=== PATIENT | male | born 1955 | race Caucasian/White ===

== ENCOUNTER → 2017-03-11 13:50 | Outpatient (CLI) | payer MEDICARE, BC ==
[2015-12-21 10:54] VITALS: BMI 28.3
[~2017-03-11 13:50] MED LIST: AMBIEN10 MG PO; ASPIRIN 81 MG E81 MG PO; CYMBALTA60 MG PO; DEXILANT60 MG PO; ELOCON45 GM TOPICAL; FISH OIL 1,2001 CA1 PO; GEODON20 MG PO; KLONOPIN1 MG PO; MULTIPLE VITAMI1 TA1 PO; NEURONTIN600 MG PO; NITROSTAT0.4 MG SL; PLAVIX75 MG PO; PRAVACHOL40 MG PO; SYSTANE NIGHTT3.5 GM EACH EYE; TRICOR145 MG PO; TRIDERM90 GM TP; TRIGLIDE160 MG PO; ULTRAM50 MG PO; VIBRAMYCIN 100100 MG PO; VITAMIN D2000 UNIT PO; VITAMIN D50000 UNIT PO; ZOVIRAX800 MG PO; [UNRECOGNIZED DRUG - OTHER] TP
== END | disposition home or self-care (01) ==
LOC: D.MRI 13:50
DX: M13.861 Other specified arthritis, right knee (principal); M13.862 Other specified arthritis, left knee

== ENCOUNTER → 2017-03-24 13:12 | Outpatient (CLI) | payer MEDICARE, BC ==
[2015-12-21 10:54] VITALS: BMI 28.3
== END | disposition home or self-care (01) ==
LOC: D.LABREF 13:12
DX: M17.12 Unilateral primary osteoarthritis, left knee (principal); Z11.8 Encounter for screening for other infectious and parasitic diseases

== ENCOUNTER 2017-04-08 10:00 | Inpatient (IN) | payer MEDICARE, BC ==
[~2017-04-08] VITALS: Ht 188 cm; Wt 99.5 kg
[2017-04-08] MEDS ORDERED: LIPITOR40 MG PO (10:58)
[2017-04-08 11:23] LABS: BASOPHILS 0.3 % (0-2); EOSINOPHILS 2.8 % (0-7); HEMATOCRIT 47.2 % (42.0-54.0); HEMOGLOBIN 15.7 g/dL (13.5-17.5); IMMATURE GRANULOCYTES 0.5 % (0-5); LYMPHOCYTES 32.7 % (15-50); MCH 31.3 pg (26.0-34.0); MCHC 33.3 g/dL (31.0-37.0); MCV 94.2 fL (80.0-100.0); MEAN PLATELET VOLUME 8.5 fL (7.4-10.4); MONOCYTES 11.3 % (2-11); NEUTROPHILS 52.4 % (40-80); PLATELET COUNT 305 10x3/uL (130-400); RBC 5.01 10x6/uL (4.20-6.10); RDW 12.5 % (11.5-14.5); WBC 6.5 10x3/uL (4.8-10.8)
[2017-04-08 11:33] LABS: APTT 28.5 SECONDS (22.8-39.4); INR 0.98 (0.85-1.17); PROTIME 12.8 SECONDS (11.6-15.0)
[2017-04-08 11:34] LABS: ANION GAP 13.4 mmol/L (8-16); CALCIUM 9.3 mg/dL (8.5-10.1); CARBON DIOXIDE 26.9 mmol/L (21.0-32.0); CREATININE - SERUM 1.2 mg/dL (0.6-1.3); POTASSIUM - SERUM 4.3 mmol/L (3.5-5.1)
[2017-04-08 11:41] LABS: COLOR DK YELLOW (YELLOW)
[2017-04-08 11:42] LABS: APPEARANCE CLEAR (CLEAR); BILIRUBIN NEGATIVE (NEGATIVE); GLUCOSE NEGATIVE (NEGATIVE); KETONE SMALL mg/dL (NEGATIVE); LEUKOCYTE ESTERASE NEGATIVE (NEGATIVE); NITRITE NEGATIVE (NEGATIVE); PROTEIN NEGATIVE (NEGATIVE); SPECIFIC GRAVITY 1.025 (1.005-1.020); UROBILINOGEN NORMAL (NORMAL)
[2017-04-14] VITALS (8 sets, daily range): BP systolic 106–136; BP diastolic 71–85; Ht 188 cm; Wt 99.5 kg
--- NOTE | 2017-04-14 10:50 | NUR ---
PT RECIEVED FROM RECOVERY AT THIS TIME, POST OP VITALS INITIATED. ASSESSMENT DONE PER FLOWSHEET. BED IN LOW POSITION AND CALL LIGHT WITHIN REACH. WILL CONTINUE TO MONTIOR.
--- NOTE | 2017-04-14 19:28 | NUR ---
PT LYING IN BED EYES DIRECTED AT TELEVISION, CHEERFUL DEMEANOR WHEN I WALKED IN, PT NEEDED ASSISTANCE WITH FINDING READING GLASSES, PT'S GLASSES WERE UNDER GOWN NEAR CPM MACHINE. BED IS IN LOW POSITION, CALL LIGHT IN REACH
--- NOTE | 2017-04-14 23:50 | NUR ---
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 BED IS IN LOW POSITION, CALL LIGHT IN REACH
[2017-04-15] VITALS: BP 108/74
--- NOTE | 2017-04-15 00:58 | NUR ---
PT BACK ON LIGHT, TOLD RN MARITO KNEE IS STILL BURNING, PT HAS PERCOCET ON OCT WELL, ADMIN PERCOCET AND ADVISED PT IF THAT DOESNT WORK WILL HAVE TO CALL DR MCKEON, WILL CONTINUE TO MONITOR PT STATUS
--- NOTE | 2017-04-15 02:00 | NUR ---
PATIENT RESTING IN BED WITH EYES CLOSED AND NO VISIBLE SIGNS OF DISTRESS. BED IN LOWEST POSITION AND CALL LIGHT WITHIN REACH.
[2017-04-15 04:00] VITALS: BP 93/58
[2017-04-15 05:59] LABS: HEMOGLOBIN 11.6 g/dL (13.5-17.5); MCH 30.9 pg (26.0-34.0); MCHC 33.1 g/dL (31.0-37.0); MCV 93.3 fL (80.0-100.0); MEAN PLATELET VOLUME 8.5 fL (7.4-10.4); RBC 3.75 10x6/uL (4.20-6.10); RDW 12.4 % (11.5-14.5)
--- NOTE | 2017-04-15 07:50 | NUR ---
ASSESSMENT COMPLETE. IV TO R WRIST PATENT. 1/2 NS INFUSING AT 100 CC/HR VIA PUMP. TEDS/SCD IN USE TO R LEG. DENIES ANY NEEDS AT PRESENT.
[2017-04-15 08:36] VITALS: BP 143/91
--- NOTE | 2017-04-15 12:00 | NUR ---
NO CHANGES NOTED AT PRESENT. VISITING WITH FRIEND.
[2017-04-15 12:15] VITALS: BP 116/73
[2017-04-15 15:57] VITALS: BP 126/77
--- NOTE | 2017-04-15 16:00 | NUR ---
RESTING QUIETLY IN BED. NO CHANGES NOTED AT PRESENT.
--- NOTE | 2017-04-15 18:01 | NUR ---
CPM APPLIED TO L KNEE. DENIES ANY NEEDS AT THIS TIME.
--- NOTE | 2017-04-15 18:30 | OP ---
PATIENT NAME: BETZAIDA TRAN MEDICAL RECORD: [id number] :55 LOCATION:[id number] ADMISSION DATE:04/14/17 SURGEON: SHAUN COTTO DO DATE OF OPERATION: 04/14/2017 PROCEDURE PERFORMED: Left total knee arthroplasty. PREOPERATIVE DIAGNOSIS: Left knee osteoarthritis. POSTOPERATIVE DIAGNOSIS: Left knee osteoarthritis. INDICATIONS: Mr. Tran is a 61-year-old male who was dealt with left knee pain for quite some time. He has had several knee arthroscopies. He was seen in the office, had tried injections, which have not worked and he came to the point where he was ready for something permanent to help with his pain as it had been affecting his activities of daily living. He was informed of the risks and benefits of a total knee arthroplasty and consented to the procedure and to be undergone today. DESCRIPTION OF PROCEDURE: Mr. Tran was given adductor canal block in the preoperative area by anesthesia and taken to the operative suite, placed in supine position, given general anesthetic and the left leg was prepped and draped in a sterile fashion. A timeout was performed and all parties were in agreement with the correct side, site and surgery as well as the patient and the patient was given 2 grams of Ancef. The incision site was then marked out and then an Ioban was placed over the left knee. The left leg was then exsanguinated with the Esmarch and the tourniquet was inflated to 350 mmHg for a total time during the surgery of 83 minutes. At that time, the incision was made down to the capsule. The knife was then changed and a fresh blade was used to make a capsulotomy. A medial parapatellar incision was made and the patella was everted and the fat pad was taken out as well as the anterior horn of the medial meniscus. A medial release was done at that time. Once the patella was milled down, it was determined to be a size 40. Osteophytes were taken off the patella as well and the knee was then brought into flexion. Intramedullary guide was inserted after the canal was opened using a reamer and Asepto manager games was used to irrigate the canal. Intramedullary fermin was then placed and the guide was placed on and the distal femur cut was made then attention was then drawn to the tibia. The tibia cut was made at 4 mm and then determined that 2 more millimeters was needed to be take off. This was done and a medial release was performed on the knee including the deep and superficial MCL. Osteophytes were removed off the tibia and the extension block was placed and the knee was balanced. The knee was then brought into flexion and the femur was measured to be a 70. The cutting block was placed and the cuts were made, first the anterior cortex and the chamfer cuts in the anterior surface. The posterior cut was then made and the posterior chamfer cut was made. The 70 trial was then placed on the femur and a 10 poly was put on the tibia with some difficulty. Osteophytes were encountered in the posterior tibia and removed and the tibial tray was inserted easily. The patella was then everted and a 40 patella was drilled, 3 pegs. Once that was done, the knee was balanced. The femoral trial was removed as well as the tibial trial and the tibia was measured and seen to be an 83, placed in slight external rotation and the tibial tray was punched at that time and then extra holes were made in the tibia with a tool to assist with cement and interdigitation. The tibia was then cleaned very well and the 83 tibia cruciate fin with cement was placed onto the tibia. Excess cement was removed and then the impactor was used twice to ensure the tibial tray was down OPERATIVE REPORT [id number] BETZAIDA TRAN the tibia. Excess cement was removed. The femur was then placed and the poly on the patella was placed as well, cemented. The femur was press fitted. A sized 40 was used on the patella. Once the cement dried, the tourniquet was let down and any bleeders were coagulated at that time with the plasma knife. Once the cement was dried, the 10 poly was trialed and seemed to be the best fit and then the knee was irrigated once again. Excess synovium was removed and the 10 E poly was placed and the tibial tray was secured with the locking device. Once this was done, the knee was brought through range of motion and seen to be in good position and had plenty of range of motion without any problems. Patella was also seen to be gliding easily on the femoral prosthesis and the capsule was closed with #1 pops in a maevtw-zu-qendw suture fashion. Once this was done, the knee was ranged again and seemed to range very well and was very well balanced. The skin was then closed after being irrigated on top of the capsule with 2-0 Vicryl in an inverted interrupted fashion and a ZipLine was used over the incision. Adaptic, 4 x 4, ABD, Webril and Aayush wrap were then placed over the knee and CRISTI hose was placed into the knee and the patient was awakened and taken to recovery in stable condition. Total tourniquet time was 83 minutes. Estimated blood loss was 150 mL. TRANSINT:[id number] Voice Confirmation ID: [id number] DOCUMENT ID: [id number] SHAUN COTTO DO at 1830 CC: [id number] DICTATION DATE: 04/14/17 1015 ORE BRIDGE OPERATOR: 04/14/17 1151 ADM IN [facility] [address] [place] [address]
--- NOTE | 2017-04-15 19:20 | NUR ---
PT IS LYING IN BED WITH LEFT LEG IN CPM MACHINE. VISITING WITH AND DAUGHTER. STATED LEG HAS BEEN HURTING ALL DAY AND NEEDED A NEW GAMEPLAN FOR MEDICATION AND PAIN MANAGEMENT. PT MEDS DUE AT 2100 ADVISED WILL WAIT UNTIL THEM BEFORE ADMIN OF MEDS AND THEN WILL REEVAL PAIN LEVEL. BED IN LOW POSITION, CALL LIGHT IN REACH
[2017-04-15 20:00] VITALS: BP 122/62
[2017-04-16] VITALS: BP 130/71
[2017-04-16 04:00] VITALS: BP 104/57
--- NOTE | 2017-04-16 04:00 | NUR ---
PATIENT IS AWAKE, ALERT AND ORIENTED X'S 4. RESPIRATIONS ARE EVEN AND UNLABORED. PATIENT DENIES NEEDS AT THIS TIME. BED IN LOWEST POSITION, CALL LIGHT IN REACH. BED RIALS UP X'S 3.
[2017-04-16 05:37] LABS: HEMATOCRIT 31.1 % (42.0-54.0); HEMOGLOBIN 10.3 g/dL (13.5-17.5); MCH 30.9 pg (26.0-34.0); MCHC 33.1 g/dL (31.0-37.0); MCV 93.4 fL (80.0-100.0); MEAN PLATELET VOLUME 8.4 fL (7.4-10.4); RBC 3.33 10x6/uL (4.20-6.10); RDW 12.4 % (11.5-14.5)
--- NOTE | 2017-04-16 07:40 | NUR ---
ASSESSMENT COMPLETE. IV TO R WRIST PATENT. DRESSING C/D/I TO L KNEE. CRISTI/SCD IN USE TO L LEG. BED ALARM IN USE. DENIES ANY NEEDS AT PRESENT.
[2017-04-16 07:59] VITALS: BP 116/72
--- NOTE | 2017-04-16 11:00 | NUR ---
Patient Name: BETZAIDA MCCRACKEN Admission Status: Elective Accout number: [id number] Admission Date: 04-14-2017 : 1955 Admission Diagnosis: Attending: SHAUN COTTO Current LOS: 2 Anticipated DC Date: Planned Disposition: Primary Insurance: MEDICARE A & B Discharge Planning Comments: CM met with patient to assess discharge planning needs. Patient lives independently with his (Jemal) who will be the one to drive him home at the time of discharge. He has 5 steps to enter in his home. He has a cane and a walker at home and stated that a cpm machine and ice machine was delivered to his house. Patient would like to use [facility] when he goes home and CM will set it up prior to discharge. CM will continue to follow and assist. PCP: SHOAIB DARNELL IN [facility] JEMAL ()[phone] President And Ceo: Concetta Villatoro * Is the patient Alert and Oriented? Yes 0 * How many steps to enter\exit or inside your home? 5 0 * PCP SHOAIB 0 * Pharmacy [facility] 0 * Preadmission Environment Home with Family 0 * ADLs Independent 0 * Equipment Cane Rolling Walker 0 * List name and contact numbers for known caregivers / representatives who currently or will assist patient after discharge: JEMAL() [phone] * Community resources currently utilized None 0 * Additional services required to return to the preadmission environment? Yes 0 * Can the patient safely return to the preadmission environment? Yes 0 * Has this patient been hospitalized within the prior 30 days at any hospital? Yes 0 Grand Total: 0
--- NOTE | 2017-04-16 11:27 | NUR ---
PERCOCET GIVEN FOR COMPLAINT OF INCISIONAL KNEE PAIN.
[2017-04-16 11:46] VITALS: BP 150/81
--- NOTE | 2017-04-16 14:54 | NUR ---
COMPLAINING OF KNEE PAIN. ATARAX GIVEN. INFORMED THAT PERCOCET COULD BE TAKEN AGAIN AT 1730. FAMILY AT BEDSIDE.
--- NOTE | 2017-04-16 17:39 | NUR ---
COMPLAINING OF PAIN. STATES THAT HE HASN'T BEEN HURTING LIKE THIS TODAY. LAST PERCOCET WAS GIVEN AT 1705. NOTIFIED DR COTTO. STATES HE WILL ENTER ORDERS.
--- NOTE | 2017-04-16 18:00 | NUR ---
TORADOL GIVEN SLOW IVP FOR COMPLAINT OF KNEE PAIN. CPM APPLIED.
[2017-04-16 20:00] VITALS: BP 130/72
--- NOTE | 2017-04-16 22:30 | NUR ---
PATIENT'S BED ALARM GOING OFF. HE STATED "I GOT UP AND WENT TO THE BATHROOM." TALKED TO PATIENT ABOUT HIS RISK FOR FALL. HE STATED " I WILL NOT GET UP BY MYSELF. I AM SO SORRY. I WILL PUSH MY CALL LIGHT AND WAIT NEXT TIME." BED ALARM ON. CALL LIGHT IN REACH. BED RAILS UP X'S 2.
[2017-04-17] VITALS: BP 138/80
[2017-04-17 03:43] VITALS: BP 136/73
--- NOTE | 2017-04-17 04:40 | NUR ---
PATIENT AMBULATED TO THE BATHROOM USING WALKER, STAYED WITH PATIENT. HE VOIDED THEN AMBULATED BACK TO BED. GAIT STEADY USING WALKER. APPLIED CPM TO LEFT LEG. OFFERED PATIENT AN ICE PACK FOR HIS KNEE. HE REFUSED.
[2017-04-17] MEDS ORDERED: ELIQUIS2.5 MG PO (07:25)
[2017-04-17] MEDS ORDERED: PERCOCET 5-3251 TAB PO (07:26)
[2017-04-17] MEDS ORDERED: OXYCONTIN10 MG PO (07:26)
[2017-04-17] MEDS ORDERED: ATARAX 25 MG TA25 MG PO (07:26)
[2017-04-17] MEDS ORDERED: KEFLEX500 MG PO (07:27)
--- NOTE | 2017-04-17 07:45 | NUR ---
ASSESSMENT COMPLETE. SL TO R WRIST. TEDS/SCDS IN USE TO BILAT LEGS.BED ALARM IN USE. DENIES ANY NEEDS AT PRESENT.
[2017-04-17 08:18] VITALS: BP 142/88
--- NOTE | 2017-04-17 09:33 | NUR ---
PATIENT BEING DISCHARGED TODAY WITH TO DRIVE HOME. PATIENT PICKED [facility] AND HIS FIRST APPOINTMENT IS SCHEDULED FOE 04/21/17 FOR 3:30PM. PT RECOMMENDED THAT THE PATIENT GET A 2 WHEEL ROLLING WALKER. CM SPOKE WITH SHAUN BROCK WITH [employer] AND HE STATED THAT HE WOULD DELIVER ONE TO THE PATIENTS HOUSE. CM WILL CONTINUE TO FOLLOW AND ASSIST NEEDED.
[2017-04-17 09:47] LABS: BASOPHILS 0.2 % (0-2); EOSINOPHILS 2.8 % (0-7); HEMOGLOBIN 10.6 g/dL (13.5-17.5); IMMATURE GRANULOCYTES 0.1 % (0-5); LYMPHOCYTES 17.7 % (15-50); MCH 30.7 pg (26.0-34.0); MCHC 33.1 g/dL (31.0-37.0); MCV 92.8 fL (80.0-100.0); MEAN PLATELET VOLUME 8.2 fL (7.4-10.4); NEUTROPHILS 69.2 % (40-80); PLATELET COUNT 234 10x3/uL (130-400); RBC 3.45 10x6/uL (4.20-6.10); RDW 12.2 % (11.5-14.5); WBC 9.1 10x3/uL (4.8-10.8)
[2017-04-17 10:00] LABS: ALBUMIN 2.7 g/dL (3.4-5.0); ANION GAP 9.9 mmol/L (8-16); BILIRUBIN - TOTAL 0.95 mg/dL (0.2-1.3); CALCIUM 8.6 mg/dL (8.5-10.1); CARBON DIOXIDE 29.8 mmol/L (21.0-32.0); CREATININE - SERUM 1.2 mg/dL (0.6-1.3); POTASSIUM - SERUM 3.7 mmol/L (3.5-5.1); PROTEIN - SERUM 6.3 g/dL (6.4-8.2)
--- NOTE | 2017-04-17 11:00 | NUR ---
DRESSING TO L KNEE CHANGED. ZIPLINE INTACT TO L KNEE INCISION. OPSITE CLEAR DRESSING APPLIED TO L KNEE APPLIED. DISCHARGE TEACHING GIVEN TO PATIENT AND . MULTIPLE SCRIPTS GIVEN TO PATIENT. OPSITE DRESSINGS X 2 GIVEN TO PATIENT.
--- NOTE | 2017-04-17 11:25 | NUR ---
DC'D HOME WITH . ESCORTED TO VEHICLE BY VOLUNTEER VIA WC WITH BELONGINGS.
--- NOTE | 2017-04-19 11:31 | NUR ---
CALL REC'D FROM LEATHA MCCRACKEN, PATIENTS . SHE STATES THAT MR MCCRACKEN HAS NOT BEEN ABLE TO GET RELIEF FROM THE PAIN POST DISCHARGE. SHE STATED THAT HE HAS ADJUSTED THE DEGREE OF FLEXION ON THE CPM A COUPLE OF TIMES AND DECREASED TIME SPENT ON THE CPM. MRS MCCRACKEN HAS BEEN GIVING THE ATARAX, PERCOCET AND OXYCONTIN ON A "SCHEDULED" BASIS DUE TO LACK OF PAIN CONTROL. SHE ALSO REPORTED THAT MR MCCRACKEN GOT UP IN THE MIDDLE OF THE NIGHT AND ATTEMPTED TO GO TO THE BATHROOM WITHOUT HIS WALKER. MR MCCRACKEN FELL HITTING THE TUB/SHOWER AND PULLING THE SHOWER DOROTHY AND CURTAIN DOWN ON HIM. I INSTRUCTED MRS MCCRACKEN TO CALL DR COTTO TO INFORM HIM OF THE ISSUES AND GET FURTHER INSTRUCTION FROM DR COTTO.
== END 2017-04-17 11:25 | disposition home or self-care (01) | DRG 470 ==
LOC: D.SDCHOLD 10:00 → D.MS 04-14 05:32 → D.SDCHOLD 04-14 07:30 → D.MS 04-14 10:39
PROVIDERS: Family Medicine; ADMIT Orthopaedic Surgery
PROC: 0SRD0J9 Replacement of Left Knee Joint with Synthetic Substitute, Cemented, Open Approach (ICD-10-PCS; principal; 2017-04-14 07:30)
DX: M17.12 Unilateral primary osteoarthritis, left knee (principal); M79.7 Fibromyalgia; K21.9 Gastro-esophageal reflux disease without esophagitis; I25.10 Atherosclerotic heart disease of native coronary artery without angina pectoris; F32.9 Major depressive disorder, single episode, unspecified; M25.762 Osteophyte, left knee

== ENCOUNTER 2017-06-23 05:22 | Inpatient (IN) | payer MEDICARE, BC ==
[2017-06-18 10:00] LABS: BASOPHILS 0.3 % (0-2); EOSINOPHILS 3.5 % (0-7); HEMOGLOBIN 13.8 g/dL (13.5-17.5); IMMATURE GRANULOCYTES 0.3 % (0-5); LYMPHOCYTES 26.1 % (15-50); MCH 29.7 pg (26.0-34.0); MCHC 32.1 g/dL (31.0-37.0); MCV 92.5 fL (80.0-100.0); MEAN PLATELET VOLUME 8.6 fL (7.4-10.4); MONOCYTES 13.4 % (2-11); NEUTROPHILS 56.4 % (40-80); RBC 4.65 10x6/uL (4.20-6.10); RDW 12.8 % (11.5-14.5); WBC 7.2 10x3/uL (4.8-10.8)
[2017-06-18 10:09] LABS: PLATELET COUNT 332 10x3/uL (130-400)
[2017-06-18 10:11] LABS: ANION GAP 10.5 mmol/L (8-16); CALCIUM 9.7 mg/dL (8.5-10.1); CARBON DIOXIDE 28.3 mmol/L (21.0-32.0); CREATININE - SERUM 1.2 mg/dL (0.6-1.3); POTASSIUM - SERUM 3.8 mmol/L (3.5-5.1)
[2017-06-18 10:14] LABS: APTT 26.4 SECONDS (22.8-39.4); INR 0.96 (0.85-1.17); PROTIME 12.6 SECONDS (11.6-15.0)
[2017-06-18 10:20] LABS: APPEARANCE CLEAR (CLEAR); COLOR DK YELLOW (YELLOW); SPECIFIC GRAVITY 1.015 (1.005-1.020)
[2017-06-18 10:21] LABS: BACTERIA FEW /hpf (NONE SEEN); BILIRUBIN NEGATIVE (NEGATIVE); CALCIUM OXALATE CRYSTALS 0-5 /hpf (NONE SEEN); EPITHELIAL CELLS RARE /hpf (0-5); GLUCOSE NEGATIVE (NEGATIVE); KETONE NEGATIVE (NEGATIVE); MUCUS <1+ /lpf (NONE SEEN); NITRITE NEGATIVE (NEGATIVE); PROTEIN NEGATIVE (NEGATIVE); UROBILINOGEN NORMAL (NORMAL); WHITE CELLS - URINE RARE /hpf (0-5)
[~2017-06-23] VITALS: Ht 188 cm; Wt 100.0 kg
[~2017-06-23 05:22] MED LIST changes: +ASPIRIN EC81 M1 PO; +ATARAX 25 MG TA25 MG PO; +ELIQUIS2.5 MG PO; +KEFLEX500 MG PO; +LIPITOR40 MG PO; +OXYCONTIN10 MG PO; +PERCOCET 5-3251 TAB PO
[2017-06-23 06:01] VITALS: BP 131/79; BMI 28.3
--- NOTE | 2017-06-23 08:05 | NUR ---
PT LEG WASHED WITH HIBICLENS AND ALCOHOL PRIOR TO CHLORPREP PER DN
--- NOTE | 2017-06-23 10:46 | NUR ---
TO ROOM 2511 FROM RR TO Wait ON BED ON MED/SURG, AWAKE AND ALERT X 3 FAMILY
--- NOTE | 2017-06-23 13:17 | NUR ---
REPORT CALLED TO [facility] MED-SURG, PATIENT TRANSFERRED TO ROOM 2212 BY STRETCHER, PATIENT WITHOUT COMPLAINTS
--- NOTE | 2017-06-23 15:38 | OP ---
PATIENT NAME: BETZAIDA TRAN MEDICAL RECORD: [id number] :55 LOCATION:[facility] ADMISSION DATE:06/23/17 SURGEON: ELIAN COTTO DO DATE OF OPERATION: 06/23/2017 PROCEDURE PERFORMED: Right total knee arthroplasty. PREOPERATIVE DIAGNOSIS: Right knee osteoarthritis. POSTOPERATIVE DIAGNOSIS: Right knee osteoarthritis. INDICATIONS: Mr. Tran is a 61-year-old male who has had right knee pain for quite some time. He has tried injections and physical therapy. He had his left knee done about 2 months ago, did well with that and decided to have the right knee done. He was consented in the office verbally for the procedure. Once this was done, the patient showed up this morning at the hospital and description of procedure is as follows. SURGEON: Elian Cotto DO COMPLICATIONS: None. ESTIMATED BLOOD LOSS: 100 mL. TOURNIQUET TIME TOTAL: Approximately 62 minutes. DESCRIPTION OF PROCEDURE: The patient was taken to the operative suite after receiving a block by anesthesia in the preoperative area, laid in supine position, given general anesthetic and intubated. Once this was done, 2 grams Ancef were given to the patient. A timeout was performed and everyone was in agreement that the right side is the correct side, correct patient, and correct procedure. The right leg was then prepped and draped in sterile fashion. The knee was flexed and the incision was marked out and Ioban was placed over the anterior knee and circumferentially around the knee. Once this was done, the leg was elevated and then an Esmarch used to exsanguinate the leg and then the tourniquet was inflated to 350 mmHg. The knee was then flexed approximately 90 degrees. An incision was made midline. Skin flaps were made medially and laterally enough to make the capsulotomy. This was done with a fresh 10 blade. The capsulotomy was made in medial parapatellar and then the knee was brought into extension. The fat pad was removed. A medial release was done and then the patella was everted and milled down sized to be 40. Extra osteophytes were then taken off at that time of the patella and the distal femur at the cartilage medially. Once this was done, the knee was brought into flexion again and a drill was used to enter the intramedullary canal for the guide. The guide was placed into the knee and 11 mm was resected off the distal femur. Attention was then drawn to the tibia and initially 4 mm of tibia were taken. The lamina elevator constructor hydraulic was used to open up the knee medial and laterally and the menisci were taken out as well as any other bone fragments that were in the knee. Then, the extension block was placed in the knee and seemed to be in good position. The knee was then flexed and the femur was sized to be 70. The 4-in-1 cutting block was then placed on the knee and the anterior chamfer, posterior cut, and posterior chamfer cut were cut at that time. The 70 trial was then placed on the knee. We had difficulty somewhat getting the tibial tray and an additional 2 mm were taken off the tibia. Once this was done, the knee was ranged and the rotation was marked on the knee. Then, the holes were drilled for the femur OPERATIVE REPORT [id number] BETZAIDA TRAN through the trial and then poly and tibial tray were removed. It was then sized to be an 83. Once this was done, the tibia was punched and drilled and irrigated thoroughly. The patella was also sized at 40 and drill holes were made from the patella. Once the tibia was cleaned and the cement was mixed, some cement was put into the tibia as well as on the prosthesis. The tibial tray at [address] Excess cement was removed from around it, and then used the secondary impactor and impacted twice, and then excess cement was removed. Femur was then placed on the femur and the 10 poly was placed on the tibial tray. It was placed in extension and the excess cement was removed and the patella was placed, and the squeezer was placed on the patella. Once the cement had hardened, the patellar squeezer was removed and the 10 was trialed and range of motion seemed to be very stable. So, we decided to use the 10. The tourniquet was let down at that time of 62 minutes. All bleeding was coagulated. At that time, the patient was also given another gram of TXA and had been given a gram earlier prior to the surgery. Once this was done, the poly was placed. The poly bar to secure the poly into place was put in and seen to be very stable. The knee was then irrigated thoroughly. Mami was placed and the capsule was closed using #1 pop-offs in a jmpivw-nj-ogcci fashion and then the skin was closed with a 2-0 Vicryl in inverted interrupted fashion and a ZipLine was placed over the skin incision. The patient was awakened and taken to recovery after Adaptic, 4 x 4s, ABD, Webril, and Aayush wrap were placed over the knee and a CRISTI hose was placed up to the knee. He was taken to recovery in stable condition. Blood loss approximately 100 mL. TRANSINT:[id number] Voice Confirmation ID: [id number] DOCUMENT ID: [id number] ELIAN COTTO DO at 1538 CC: [id number] DICTATION DATE: 06/23/17 0956 [employer]: 06/23/17 1109 ADM IN [place] [id number] [place] [address]
[2017-06-23 17:46] VITALS: BP 101/58
[2017-06-23 19:07] VITALS: Ht 188 cm; Wt 100.0 kg
[2017-06-23 20:00] VITALS: BP 101/48
[2017-06-24 04:00] VITALS: BP 105/73
[2017-06-24 06:17] LABS: BASOPHILS 0.2 % (0-2); HEMATOCRIT 36.1 % (42.0-54.0); HEMOGLOBIN 11.7 g/dL (13.5-17.5); IMMATURE GRANULOCYTES 0.2 % (0-5); LYMPHOCYTES 18.4 % (15-50); MCH 29.8 pg (26.0-34.0); MCHC 32.4 g/dL (31.0-37.0); MCV 92.1 fL (80.0-100.0); MEAN PLATELET VOLUME 8.9 fL (7.4-10.4); MONOCYTES 14.7 % (2-11); NEUTROPHILS 65.5 % (40-80); PLATELET COUNT 302 10x3/uL (130-400); RBC 3.92 10x6/uL (4.20-6.10); RDW 13.1 % (11.5-14.5); WBC 9.9 10x3/uL (4.8-10.8)
[2017-06-24 06:43] LABS: ALBUMIN 2.8 g/dL (3.4-5.0); ANION GAP 12.3 mmol/L (8-16); BILIRUBIN - TOTAL 0.4 mg/dL (0.2-1.3); CALCIUM 8.5 mg/dL (8.5-10.1); CARBON DIOXIDE 25.2 mmol/L (21.0-32.0); CREATININE - SERUM 1.2 mg/dL (0.6-1.3); POTASSIUM - SERUM 3.5 mmol/L (3.5-5.1)
--- NOTE | 2017-06-24 07:55 | NUR ---
ASSESSMENT COMPLETE. SL TO L FA. CRISTI HOSE IN USE TO BILAT LEGS. DENIES ANY COMPLAINT OF PAIN AT THIS TIME.DRESSING TO L KNEE C/D/I.
[2017-06-24 08:49] VITALS: BP 122/78
--- NOTE | 2017-06-24 09:05 | NUR ---
COMPLAINIG OF PAIN TO R KNEE. OXYCODONE IR 5 MG GIVEN.
--- NOTE | 2017-06-24 09:30 | NUR ---
BLOODY DRAINAGE NOTED BEHIND RIGHT KNEE AFTER AMBULATING WITH PT. DRESSING CHANGED USING ADAPTIC,4X4'S, ABD PAIN AND TEE WRAP. SITTING UP IN CHAIR.
--- NOTE | 2017-06-24 13:00 | NUR ---
SITTING UP IN CHAIR. VISITING WITH . DENIES ANY NEEDS AT THIS TIME.
[2017-06-24 13:46] VITALS: BP 124/78
[2017-06-24 15:50] VITALS: BP 135/60
--- NOTE | 2017-06-24 18:10 | NUR ---
CPM APPLIED. AT BEDSIDE.
--- NOTE | 2017-06-24 18:20 | NUR ---
NO CHANGES NOTED AT PRESENT.
--- NOTE | 2017-06-24 19:46 | NUR ---
REC'D. IN CPM. LEONOR. WELL. TEE WRAP DRSG.DRY AND INTACT.WITH CRISTI CAMACHO ON.NEUROVASCULAR STATUS WNL.DENIES CALF PAIN OR TENDERNESS ON DORSIFLEXION PEDAL PULSE PRESENT.WILL CONTINUE TO MONITOR FOR ANY CHGES. AND FOLLOW CURRENT PLAN OF CARE.
[2017-06-24 20:00] VITALS: BP 130/69
--- NOTE | 2017-06-24 21:54 | NUR ---
PATIENT REQUEST TO WAIT AND TAKE PM MEDS. BETWEEN 2230 AND 2300
--- NOTE | 2017-06-25 02:00 | NUR ---
PT IN BED WITH NO DISTRESS. RESPIRATIONS EVEN AND UNLABORED. SIDE RAILS X 2. BED LOW. CALL LIGHT IN REACH.
[2017-06-25 04:00] VITALS: BP 121/75
[2017-06-25 06:17] LABS: BASOPHILS 0.2 % (0-2); EOSINOPHILS 4.3 % (0-7); HEMATOCRIT 34.5 % (42.0-54.0); HEMOGLOBIN 11.2 g/dL (13.5-17.5); IMMATURE GRANULOCYTES 0.3 % (0-5); LYMPHOCYTES 17.9 % (15-50); MCH 29.6 pg (26.0-34.0); MCHC 32.5 g/dL (31.0-37.0); MEAN PLATELET VOLUME 9.2 fL (7.4-10.4); MONOCYTES 14.5 % (2-11); NEUTROPHILS 62.8 % (40-80); PLATELET COUNT 287 10x3/uL (130-400); RBC 3.79 10x6/uL (4.20-6.10); RDW 13.1 % (11.5-14.5); WBC 9.6 10x3/uL (4.8-10.8)
[2017-06-25 06:40] LABS: ALBUMIN 2.7 g/dL (3.4-5.0); ANION GAP 13.3 mmol/L (8-16); BILIRUBIN - TOTAL 0.6 mg/dL (0.2-1.3); CALCIUM 8.6 mg/dL (8.5-10.1); CARBON DIOXIDE 24.4 mmol/L (21.0-32.0); CREATININE - SERUM 1.1 mg/dL (0.6-1.3); POTASSIUM - SERUM 3.7 mmol/L (3.5-5.1); PROTEIN - SERUM 5.9 g/dL (6.4-8.2)
--- NOTE | 2017-06-25 07:30 | NUR ---
ASSESSMENT COMPLETE. SL TO L FA PATENT. DRESSING TO R KNEE C/D/I. CRISTI HOSE IN USE TO BILAT LEGS. DENIES ANY NEEDS AT THIS TIME.
[2017-06-25 09:03] VITALS: BP 140/84
--- NOTE | 2017-06-25 10:00 | NUR ---
OXY IR GIVEN FOR COMPLAINT OF INCISIONAL PAIN.
--- NOTE | 2017-06-25 10:14 | NUR ---
Patient Name: BETZAIDA MCCRACKEN Admission Status: Elective Accout number: [id number] Admission Date: 06-23-2017 : 1955 Admission Diagnosis:UNILATERAL PRIMARY OSTEOARTHRITIS, RIGHT KNEE Attending: SHAUN COTTO Current LOS: 2 Anticipated DC Date: 06-25-2017 Planned Disposition: Home Primary Insurance: MEDICARE A & B Discharge Planning Comments: CM MET WITH PATIENT TO ASSESS DISCHARGE PLANNING NEEDS. PATIENT HAS HAD A RECENT KNEE REPLACEMENT AND HAS A WALKER, CPM, ICE MACHINE AT HOME. HE PLANS TO RETURN TO [facility] PT FOR HIS OUT PATIENT THEARPY. PATIENT STATED THAT HIS WILL BE THE ONE TO DRIVE HIM HOME AT DISCHARGE. CM WILL CONTINUE TO FOLLOW AND ASSIST WITH DISCHARGE PLANNING NEEDS NEEDED. PCP: SHOAIB DARNELL IN [facility] () [phone] Editor [employer] Journal: Concetta Villatoro
--- NOTE | 2017-06-25 11:20 | NUR ---
OP PT SET UP WITH [facility] PATIENT'S APPOINTMENT IS SET FOR ThursdayJun AT 8:00 AM.
[2017-06-25] MEDS ORDERED: ELIQUIS2.5 MG PO (13:24)
[2017-06-25] MEDS ORDERED: OXYCODONE HCL5 MG PO (13:24)
[2017-06-25] MEDS ORDERED: ATARAX 25 MG TA25 MG PO (13:24)
[2017-06-25] MEDS ORDERED: KEFLEX500 MG PO (13:24)
--- NOTE | 2017-06-25 14:00 | NUR ---
DRESSING TO R KNEE CHANGED. ZIPLINE INTACT TO R KNEE INCISION. HONEYCOMB DRESSING APPLIED. DISCHARGE TEACHING GIVEN TO PATTIENT AND . VOICED UNDERSTANDING. SCRIPTS GIVEN TO PATIENT. EXTRA DRESSING SUPPLIES SENT [facility] PATIENT.
--- NOTE | 2017-06-25 14:35 | NUR ---
DC'D HOME WITH . ESCORTED TO VEHICLE BY VOLUNTEER VIA WC WITH BELONGINGS.
== END 2017-06-25 14:45 | disposition home or self-care (01) | DRG 470 ==
LOC: D.SDCHOLD 05:22 → D.MS 05:22 → D.SDCHOLD 07:30 → D.MS 13:21 → D.SDCHOLD 06-25 13:46 → D.MS 06-25 13:49
PROVIDERS: Emergency Medicine; ADMIT Orthopaedic Surgery
PROC: 0SRC0J9 Replacement of Right Knee Joint with Synthetic Substitute, Cemented, Open Approach (ICD-10-PCS; principal; 2017-06-23 07:30)
DX: M17.11 Unilateral primary osteoarthritis, right knee (principal); K21.9 Gastro-esophageal reflux disease without esophagitis; I25.10 Atherosclerotic heart disease of native coronary artery without angina pectoris; F32.9 Major depressive disorder, single episode, unspecified

== ENCOUNTER → 2017-08-12 09:11 | Outpatient (CLI) | payer MEDICARE, BC ==
[2017-06-23 19:07] VITALS: BMI 28.3
[~2017-08-12 09:11] MED LIST changes: +OXYCODONE HCL5 MG PO
== END | disposition home or self-care (01) ==
LOC: D.MRI 09:00
DX: M54.16 Radiculopathy, lumbar region (principal)

== ENCOUNTER → 2018-03-05 13:28 | Outpatient (CLI) | payer MEDICARE, BC ==
[2017-06-23 19:07] VITALS: BMI 28.3
== END | disposition home or self-care (01) ==
LOC: D.MRI 13:28
DX: M54.16 Radiculopathy, lumbar region (principal)

== ENCOUNTER → 2020-01-11 08:30 | Outpatient (CLI) | payer MEDICARE, BC ==
[2017-06-23 19:07] VITALS: BMI 28.3
== END | disposition home or self-care (01) ==
LOC: D.NM 08:30
PROVIDERS: ATTEND Orthopaedic Surgery
DX: M17.11 Unilateral primary osteoarthritis, right knee (principal); M17.12 Unilateral primary osteoarthritis, left knee

== ENCOUNTER 2020-01-13 15:50 | Inpatient (IN) | payer MEDICARE, BC ==
[~2020-01-13] VITALS: Ht 188 cm; Wt 99.1 kg
[2020-01-24] MEDS ORDERED: BAYER CHEWABLE81 MG PO (14:06)
[2020-01-24] MEDS ORDERED: PLAVIX75 MG PO (14:07)
[2020-01-24] MEDS ORDERED: ULTRAM50 MG PO (14:13)
[2020-01-24] MEDS ORDERED: OMEPRAZOLE20 M1 PO (14:14)
[2020-01-24] MEDS ORDERED: OMEPRAZOLE40 MG PO (14:14)
[2020-01-24] MEDS ORDERED: FLUTICASONE PRO16 GM NASAL ×2 (14:17)
[2020-01-25 12:24] LABS: BASOPHILS 0.3 % (0-2); EOSINOPHILS 3.6 % (0-7); HEMATOCRIT 45.1 % (42.0-54.0); HEMOGLOBIN 14.7 g/dL (13.5-17.5); IMMATURE GRANULOCYTES 0.2 % (0-5); LYMPHOCYTES 30.4 % (15-50); MCH 29.6 pg (26.0-34.0); MCHC 32.6 g/dL (31.0-37.0); MCV 90.7 fL (80.0-100.0); MEAN PLATELET VOLUME 8.3 fL (7.4-10.4); MONOCYTES 10.9 % (2-11); NEUTROPHILS 54.6 % (40-80); PLATELET COUNT 341 10x3/uL (130-400); RBC 4.97 10x6/uL (4.20-6.10); RDW 12.3 % (11.5-14.5); WBC 5.9 10x3/uL (4.8-10.8)
[2020-01-25 12:36] LABS: APTT 26.2 SECONDS (22.8-39.4); INR 1.03 (0.85-1.17); PROTIME 13.4 SECONDS (11.6-15.0)
[2020-01-25 12:40] LABS: ANION GAP 8.8 mmol/L (8-16); CALCIUM 9.2 mg/dL (8.5-10.1); CARBON DIOXIDE 29.4 mmol/L (21.0-32.0); CREATININE - SERUM 1.3 mg/dL (0.6-1.3); POTASSIUM - SERUM 4.2 mmol/L (3.5-5.1)
[2020-01-25 13:31] LABS: BILIRUBIN NEGATIVE (NEGATIVE); GLUCOSE NEGATIVE (NEGATIVE); KETONE NEGATIVE (NEGATIVE); NITRITE NEGATIVE (NEGATIVE)
[2020-01-31 12:11] VITALS: BP 129/79; BMI 28.0
--- NOTE | 2020-01-31 20:24 | NUR ---
BILATERAL COMPONENTS REMOVED FROM KNEES WERE DISPOSED OF AT SURGEONS REQUEST- DIMA CLAYTON
--- NOTE | 2020-01-31 20:55 | NUR ---
RECIEVED TO ROOM FROM RECOVERY, ALERT AND ORIENTIATED, TEE WRAP DRESSING INTACT TO BILATERAL KNEES, ABLE TO MOVE TOES WHICH ARE PINK AND WARM, SEE ASSESSMENT, AT BEDSIDE, INSTRUCTED ON NEED TO TRY AND VOID, URINAL GIVEN
[2020-01-31 21:00] VITALS: BP 113/78
[2020-01-31 22:00] VITALS: BP 103/64
--- NOTE | 2020-01-31 23:00 | NUR ---
UNABLE TO VOID AFTER TRYING, ATTEMPTED IN AND OUT CATH X 2 NURSES UNABLE TO ADVANCE CATH INTO BLADDER, HS NOTIFIED FOR [facility] CATH
[2020-02-01] VITALS: BP 172/68
--- NOTE | 2020-02-01 00:15 | NUR ---
[facility] CATH PLACED BY ESTHELA CLAYTON FROM ER WITHOUT DIFFICULTY, RETURN OF 450CC BENTLEY COLORED URINE, DISCUSSED WITH HS WILL LEAVE CATH IN TONIGHT, TOLERATED WELL
[2020-02-01 01:29] VITALS: BP 113/78; Ht 188 cm; Wt 99.1 kg
[2020-02-01 05:00] VITALS: BP 115/59
[2020-02-01 07:04] LABS: HEMATOCRIT 36.9 % (42.0-54.0); HEMOGLOBIN 11.8 g/dL (13.5-17.5); MCH 29.5 pg (26.0-34.0); MCV 92.3 fL (80.0-100.0); MEAN PLATELET VOLUME 8.5 fL (7.4-10.4); RDW 12.5 % (11.5-14.5); WBC 13.3 10x3/uL (4.8-10.8)
--- NOTE | 2020-02-01 08:56 | NUR ---
REMOVED CPM, PT IN PAIN 04/26 [address] OXY [address] ORDERS, A&O BREAKFAST 100% TEDS REPLACED
--- NOTE | 2020-02-01 11:22 | NUR ---
pt c/o 05/26 pain prn torodol given, oxy 10 was given at 0830, with no relief
[2020-02-01 12:08] VITALS: BP 108/60
--- NOTE | 2020-02-01 12:47 | NUR ---
pt still c/o 10/10 pain level after torodol gave valium and oxy 10
[2020-02-01 13:35] VITALS: BP 98/50
[2020-02-01 15:31] LABS: BASOPHILS 0.1 % (0-2); EOSINOPHILS 0.9 % (0-7); HEMATOCRIT 37.4 % (42.0-54.0); HEMOGLOBIN 11.7 g/dL (13.5-17.5); IMMATURE GRANULOCYTES 0.1 % (0-5); LYMPHOCYTES 10.5 % (15-50); MCH 29.3 pg (26.0-34.0); MCHC 31.3 g/dL (31.0-37.0); MCV 93.7 fL (80.0-100.0); MEAN PLATELET VOLUME 9.6 fL (7.4-10.4); MONOCYTES 11.7 % (2-11); NEUTROPHILS 76.7 % (40-80); RBC 3.99 10x6/uL (4.20-6.10); RDW 12.6 % (11.5-14.5); WBC 13.4 10x3/uL (4.8-10.8)
[2020-02-01 15:33] LABS: PLATELET COUNT 332 10x3/uL (130-400)
[2020-02-01 15:42] LABS: ANION GAP 11.6 mmol/L (8-16); CARBON DIOXIDE 26.3 mmol/L (21.0-32.0); CREATININE - SERUM 1.6 mg/dL (0.6-1.3); POTASSIUM - SERUM 3.9 mmol/L (3.5-5.1)
[2020-02-01 16:55] LABS: BASOPHILS 0.2 % (0-2); EOSINOPHILS 0.4 % (0-7); HEMATOCRIT 34.2 % (42.0-54.0); IMMATURE GRANULOCYTES 0.2 % (0-5); LYMPHOCYTES 18.1 % (15-50); MCH 29.3 pg (26.0-34.0); MCHC 32.2 g/dL (31.0-37.0); MONOCYTES 14.2 % (2-11); NEUTROPHILS 66.9 % (40-80); RBC 3.76 10x6/uL (4.20-6.10); RDW 12.4 % (11.5-14.5); WBC 10.5 10x3/uL (4.8-10.8)
[2020-02-01 17:23] LABS: PLATELET COUNT 214 10x3/uL (130-400)
--- NOTE | 2020-02-01 17:29 | OP ---
PATIENT NAME: BETZAIDA TRAN MEDICAL RECORD: [id number] :55 LOCATION:D. D.1208 ADMISSION DATE:01/31/20 SURGEON: ELIAN COTTO DO DATE OF OPERATION: 01/31/2020 PROCEDURE PERFORMED: Bilateral revision total knee arthroplasty. 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 INDICATION: Mr. Tran is a 64-year-old male who approximately 2-1/2 years ago had bilateral total knee done a few months apart. He was doing very well until about a month ago when he had started walking. He walked 15 miles a week he said. He started having pain in his tibias, the left more than the right. He came to see me and had x-rays and no obvious signs of loosening were seen on the x-ray; however, told him he get a bone scan to make sure it was not infected, and to also draw labs. Labs are negative for any elevated inflammatory markers. We also got the bone scan. Bone scan came back in that both tibial components were loose, the left more so than the right, but they are both loose, nonetheless. I informed him of the risk that if we left it or if we did them. He wanted to get them done both at the same time. I told him there will be a bigger risk for blood clots, infection, and the risk for infection anyways due to the fact that it is revision, increased risk, continued pain, loosening again, failure of implants, arthrofibrosis and knee pain and even and he signed the consent. SURGEON: Elian Cotto DO DESCRIPTION OF PROCEDURE: The patient was taken to the operative suite after giving a block by anesthesia in the preoperative area, laid in the supine position, given general anesthetic and LMA was placed. The bilateral lower extremities were then prepped and draped in sterile fashion. He was given 2 grams Ancef, 80 mg of gentamicin and a gram of TXA prior to beginning. A timeout was performed. After bilateral lower extremities prepped and draped, we covered with a right one with a 3/4 sheet. The left one we marked out the incision, covered in Ioban. I then made an incision through the skin down to the capsule. A medial parapatellar approach to the capsule with a fresh 10 blade scalpel exposing the components and then removed the locking pin and removed the poly and exposed the tibia and loosened it up as it was already loose on the medial side, loosened up and removed it, after removing some more scar tissue lateral aspect and then removed the tibial component and the excess cement, drilled and then reamed down the tibia up to 22 and made a freshened up cut on the tibia. Excess bone was then removed and any other cement. We then sized it to be 79 and reamed and punched it and then got the rotation of the 2.5 offset, this was prior to preparing the tibia. We then reamed and punched it and then put extra holes in the tibia for the cement mantle. I then trialed, he did have 5 augment and we then got the components ready, the cement was mixed. Cement was placed on the tibia and on the component, but not distally in the stem. We put the impacted into place and removed the excess cement, then put in a poly and put it out in extension and removed excess cement then and put the 10% povidone-iodine with 500 mL normal saline solution in the knee, let it set for 3 minutes while the cement dried, then irrigated that with more than a liter OPERATIVE REPORT [id number] BETZAIDA TRAN of normal saline. I then trialed up to 16 and 16 fit very well and this was locked in with the anterior stabilized poly. I had inflated the tourniquet prior to starting after exsanguinating the left lower extremity, tourniquet was then let down, it was up, at that point, for 64 minutes. He was then given another gram of TXA. I then closed the capsule with a #1 Vicryl pop offs in vvegrv-ji-howdz fashion and the skin with 2-0 Vicryl in inverted interrupted fashion and ZipLine placed on the knee. He was then dressed with Adaptic, 4 x 4s, ABD, Webril, and then the left leg was covered. Right leg was then uncovered and then reprepped and I put another drape on and then reprepped, did not remove any of the drapes underneath. We then marked out the incision covered in Ioban. I exsanguinated the right lower extremity with Esmarch, tourniquet was inflated to 350 mmHg, it was up for 72 minutes. We then made the incision along the old incision after being marked and covered in Ioban and careful dissection made down to the capsule. Medial parapatellar approach was then used and the excess scar tissue was removed off the lateral side. I then exposed the poly and removed the pin and the poly and then tibia and removed the tibial component. After carefully removing it, we reamed and removed the excess cement and then made a freshened up cut, we reamed up to 22 in the tibial canal. We then freshened up the cut and sized it to be 75. We then marked the rotation with 2.5 offset at the 5 and then reamed and then punched the tibia, putting excess holes in the tibia as well - extra holes and cement. We then trialed with a 5 augment, and 14 and 16 poly fit very well. Decided to go with that. We then mixed the cement, removed the trials, and irrigated the tibia and removed any excess cement that remained. I then put cement on the tibia just at the proximal portion and on that component and then impacted into place using a 22 x 80 stem gripped blasted, this is on bilateral tibias. We then removed the excess cement after impacting it into place and put the poly in between, brought the knee out in extension, removing excess cement. We then put the 10% povidone-iodine with 500 mL normal saline solution in the knee, left it for 3 minutes while cement dried. This then irrigated out with over a liter of normal saline. We then trialed up to a 16. The 16 fit well. Tourniquet was let down at that time and he was given another gram of TXA, at 72 minutes was when tourniquet was let down. The 16 anterior stabilized E poly was then placed and locked into place. He had good range of motion and good stability in flexion and extension. I then closed the capsule with #1 Pops and lfouga-og-slpwyr and then a couple of tpsikm-ht-hypukr with #2 Ethibond and then did a running stitch with #2 Ethibond from proximal to distal and then distal to proximal and crossed them over and tied them. I then closed the skin with the assistance of Jatin Hernandez, surgical horticultural nursery assistant student, closing the skin with 2-0 Vicryl in a rwywwo-li-kopjd fashion. ZipLine placed on the knee. Adaptic, 4 x 4s, ABD, Webril, Aayush wrap placed on both knees and he was awakened and taken to recovery in stable condition. Blood loss was approximately 200 mL. COMPLICATIONS: None. TRANSINT:[id number] Voice Confirmation ID: [id number] DOCUMENT ID: [id number] OPERATIVE REPORT [id number] BETZAIDA TRAN MICHAEL D, DO at 1729 CC: [id number] DICTATION DATE: 01/31/202032 GRAPHICS PRODUCTION SPECIALIST: 02/01/207 ADM IN [facility] [address] [place] [address]
--- NOTE | 2020-02-01 18:55 | MORECARE ---
CASE MANAGEMENT DISCHARGE SUMMARY PATIENT: BETZAIDA TRAN UNIT: [id number] ADM DATE: 01/31/20 AGE: 64 : 55 SEX: M ROOM/BED: D.1208 AUTHOR: DANIEL,JULIANE PHYSICIAN: REFERRING PHYSICIAN: SHAUN COTTO DO DATE OF SERVICE: 02/01/20 Discharge Plan Patient Name: BETZAIDA TRAN Facility: [facility]:[place] : 1955 Planned Disposition: Outpatient PT\OT Anticipated Discharge Date: 02/03/20 Discharge Date: Expected LOS: 3 Initial Reviewer: [email or web address] Initial Review Date: 01/31/2020 Generated: 02/01/20 7:54 pm Comments DCP- Discharge Planning Updated by [email or web address]: Gina Snell on 02/01/20 5:[address] DC Plans: [facility], [id number]. CM met with the patient regarding DC plans/needs. Patient states that he lives independently with his ,Jemal Tran #[phone]. Patient states he has 4 stairs entering the home, no rails. PCP: Dr. Mehta. [facility]acy[facility]. DME: CPM X2, 2 wheeled walker, Polar ice pack, Shower/tub bench. CM discussed the need for HHS, OP Therapy, Rehab or SNF. Patient choice signed for [facility] OP [facility]. Patient denies being hospitalized within the past 30 days. Patient's , Jemal will drive him home upon DC. CM will contact [facility] ([phone]) for the appointment, for initial therapy evaluation. CM will assist and follow PRN. DCPIA - Discharge Planning Initial Assessment Updated by [email or web address]: Gina Snell on 02/01/20 6:51 pm * Is the patient Alert and Oriented? Yes * How many steps to enter\exit or inside your home? * PCP Dr. Mehta * Pharmacy [facility] * Preadmission Environment Home with Family * ADLs Independent * Equipment Rolling Walker * Other Equipment CPM X2, 2 wheeled walker, Polar ice pack, tub bench * List name and contact numbers for known caregivers / representatives who currently or will assist patient after discharge: Gwen Tran [phone] (c) Home [phone] * Verbal permission to speak to the caregivers and representatives has been obtained from the patient. Yes * Community resources currently utilized None * Please name any agencies selected above. [facility] OP Therapy [phone] * Additional services required to return to the preadmission environment? Yes * Can the patient safely return to the preadmission environment? Yes * Has this patient been hospitalized within the prior 30 days at any hospital? No Patient Name: BETZAIDA TRAN Page [phone] at 1855 All edits/amendments must be made on the electronic document DICTATION DATE: 02/01/201853 MACHINIST APPRENTICE: GLORIA 02/01/201853 RPT#: [id number] DC DATE: STATUS: ADM IN [facility] [address] [place] [address] END OF REPORT
--- NOTE | 2020-02-01 19:30 | NUR ---
ALERT APEARS VERY ANXIOUS AND TEARFUL,REPORTS CANT TAKE THE PAIN WANTING CMP OFF, ENCOURAGED TO TRY FOR 30 MIN MORE, AGREED, AT BEDSIDE, REPORTS HE HAS NOT SLEPT TODAY AND HAS BEEN ANXIOUS AND HURTING ALL DAY, SEE SHIFT ASSESSMENT, CALL LIGHT IN REACH
--- NOTE | 2020-02-01 20:00 | NUR ---
CPM NOW OFF, STATES HE JUST COULDNT STAND IT ANY MORE, REMAING ANXIOUS AND TREMBLING, INFORMED WAS GONG TO GIVE HIS PAIN MEDS AND VALIUM AND HE NEEDED TO TRY AND RELAX
[2020-02-01 21:13] VITALS: BP 144/75
--- NOTE | 2020-02-01 22:00 | NUR ---
HAS RESTED QUITELY WITH EYES CLOSED FOR ABOUT A HOUR, NOW AWAKE AND CONFUSED ATTEMPTING TO GET OUT OF BED TO GO EAT OR GO TO BATHROOM, REORIENTIATED TO PLACE AND SITUATION, REPOSITIONED IN BED CALL LIGHT IN REACH, BED ALARM ON WILL MONITOR
--- NOTE | 2020-02-02 03:00 | NUR ---
HAS RESTED WITH EYES CLOSED AND RESP UNLABORED, NOW AWAKE AND C/O SEVERE PAIN REQUESTING PAIN MEDS DILAUDID GIVEN ORDERED, MORE ORIENTIATED NOW, INFORMED WILL START CPM IN ABOUT A HOUR, PT AGREED
[2020-02-02 04:00] VITALS: BP 138/77
--- NOTE | 2020-02-02 04:30 | NUR ---
CPM PLACED ON LEFT LEG, REPORTS PAIN MUCH BETTER
--- NOTE | 2020-02-02 06:07 | NUR ---
HO CATH DC'D TOLERATED WELL, URINAL AT BEDSIDE
[2020-02-02 06:39] LABS: ANION GAP 9.8 mmol/L (8-16); CARBON DIOXIDE 28.8 mmol/L (21.0-32.0); CREATININE - SERUM 1.4 mg/dL (0.6-1.3); MAGNESIUM - SERUM 1.8 mg/dL (1.8-2.4); POTASSIUM - SERUM 3.6 mmol/L (3.5-5.1)
[2020-02-02 07:30] LABS: BASOPHILS 0.2 % (0-2); EOSINOPHILS 0.8 % (0-7); HEMOGLOBIN 11.2 g/dL (13.5-17.5); IMMATURE GRANULOCYTES 0.3 % (0-5); LYMPHOCYTES 14.8 % (15-50); MCH 29.2 pg (26.0-34.0); MCV 91.4 fL (80.0-100.0); MEAN PLATELET VOLUME 8.8 fL (7.4-10.4); MONOCYTES 15.1 % (2-11); NEUTROPHILS 68.8 % (40-80); RBC 3.83 10x6/uL (4.20-6.10); RDW 12.6 % (11.5-14.5); WBC 10.4 10x3/uL (4.8-10.8)
[2020-02-02 07:31] LABS: PLATELET COUNT 264 10x3/uL (130-400)
[2020-02-02 07:53] VITALS: BP 138/80
--- NOTE | 2020-02-02 07:53 | NUR ---
PT IS RESTING IN BED WITH EYES OPEN. RESPIRATIONS ARE EVEN AND UNLABORED. PT IS AAOX 4. CPM TO LEFT KNEE NOTED. DRESSING TO BILATERAL KNEES AND ARE BOTH CDI. PT DENIES PRESENCE OF NUMBNESS/TINGLING TO BLE. PT DENIES PRESENCE OF N/V AT THIS TIME. INCENTIVE SPIROMETER AT BEDSIDE. INCENTIVE SPIROMETER ENCOURAGED. PT VERBALIZES UNDERSTANDING. BED IS IN THE LOWEST POSITION. CALL LIGHT AND BEDSIDE TABLE ARE WITHIN REACH. SIDE RAILS X 2. FALL PRECAUTIONS IN PLACE. PT DENIES FURTHER NEEDS. WILL CONT TO MONITOR.
--- NOTE | 2020-02-02 08:38 | NUR ---
CPM REMOVED FROM LEFT KNEE AND PLACED TO RIGHT KNEE. PT TOLERATED WELL. FALL PRECAUTIONS IN PLACE. BED IN THE LOWEST POSITION. CALL LIGHT AND BEDSIDE TABLE ARE WITHIN REACH. SIDE RAILS X 2. INCENTIVE SPIROMETER AT BEDSIDE. PT DENIES FURTHER NEEDS.
--- NOTE | 2020-02-02 10:25 | MORECARE ---
CASE MANAGEMENT DISCHARGE SUMMARY PATIENT: BETZAIDA TRAN UNIT: [id number] ADM DATE: 01/31/20 AGE: 64 : 55 SEX: M ROOM/BED: D.1208 AUTHOR: DANIEL,DOC PHYSICIAN: REFERRING PHYSICIAN: SHAUN COTTO DO DATE OF SERVICE: 02/02/20 Discharge Plan Patient Name: BETZAIDA TRAN Facility: [facility]:[place] : 1955 Planned Disposition: Outpatient PT\OT Anticipated Discharge Date: 02/03/20 Discharge Date: Expected LOS: 3 Initial Reviewer: [email or web address] Initial Review Date: 01/31/2020 Generated: 02/02/20 11:24 am Comments DCP- Discharge Planning Updated by [email or web address]: Gina Snell on 02/02/20 9:[address] [facility] OP therapy appointment is 02/06/20 @2:00 pm. Arrive @1:45 pm for paperwork. DCP- Discharge Planning Updated by [email or web address]: Gina Snell on 02/01/20 5:[address] DC Plans: [facility], [id number]. CM met with the patient regarding DC plans/needs. Patient states that he lives independently with his ,Jemal Tran #[phone]. Patient states he has 4 stairs entering the home, no rails. PCP: Dr. Mehta. [facility]acy[facility]. DME: CPM X2, 2 wheeled walker, Polar ice pack, Shower/tub bench. CM discussed the need for HHS, OP Therapy, Rehab or SNF. Patient choice signed for [facility] OP Therapy. Patient denies being hospitalized within the past 30 days. Patient's , Jemal will drive him home upon DC. CM will contact [facility] ([phone]) for the appointment, for initial therapy evaluation. CM will assist and follow PRN. DCPIA - Discharge Planning Initial Assessment Updated by [email or web address]: Gina Snell on 02/01/20 6:51 pm * Is the patient Alert and Oriented? Yes * How many steps to enter\exit or inside your home? * PCP Dr. Mehta * [facility]acy [facility] * Preadmission Environment Home with Family * ADLs Independent * Equipment Rolling Walker * Other Equipment CPM X2, 2 wheeled walker, Polar ice pack, tub bench * List name and contact numbers for known caregivers / representatives who currently or will assist patient after discharge: Gwen Tran [phone] (c) Home [phone] * Verbal permission to speak to the caregivers and representatives has been obtained from the patient. Yes * Community resources currently utilized None * Please name any agencies selected above. [facility] OP Therapy [phone] * Additional services required to return to the preadmission environment? Yes * Can the patient safely return to the preadmission environment? Yes * Has this patient been hospitalized within the prior 30 days at any hospital? No Last DP export: 02/01/20 5:55 p Patient Name: BETZAIDA TRAN Page [phone] at 1025 All edits/amendments must be made on the electronic document DICTATION DATE: 02/02/20 1024 MORTGAGE LOAN COORDINATOR: GLORIA 02/02/20 1024 RPT#: [id number] DC DATE: STATUS: ADM IN [facility] [address] [place] [address] END OF REPORT
--- NOTE | 2020-02-02 11:10 | NUR ---
PT REQUESTING PAIN MEDICATION AT THIS TIME. PT WITH DOCUMENTED ALLERGY TO OXYCODONE AND PRN MEDICATION ORDERED. SEE EMAR. PT STATES THAT ALLERGY TO OXYCODONE IS THAT "IT CAUSES ME TO BE REALLY AGITATED". PT REQUESTS PAIN MEDICATION AT THIS TIME AND STATES "ITS OK. JUST GIVE IT TO ME". WILL ADMINISTER ANALGESIC PER ORDER. SEE EMAR.
[2020-02-02 11:14] VITALS: BP 143/78
[2020-02-02 15:31] VITALS: BP 124/72
--- NOTE | 2020-02-02 17:30 | NUR ---
CPM ON RIGHT LEG. PT TOLERATING WELL. BED IS IN THE LOWEST POSITION. CALL LIGHT AND BEDSIDE TABLE ARE WITHIN REACH. SIDE RAILS X 2. FAMILY AT BEDSIDE. PT DENIES FURTHER NEEDS. WILL CONT TO MONITOR.
[2020-02-02 19:24] VITALS: BP 136/71
--- NOTE | 2020-02-02 20:00 | NUR ---
ALERT RESTING IN BED CPM REMOVED FROM RIGHT LEG, WILL GIVE 30 MIN BREAK BEFORE PUTTING ON LEFT KNEE, REQUESTING PAIN MEDS, EXPLAINED WOULD GIVE MORPHINE AT 2029 ITS SCHEDULED FOR 2099, PT AGREED, BATH GIVEN AND BED CHANGED, SEE ASSESSMENT, CALL LIGHT IN REACH
--- NOTE | 2020-02-02 22:45 | NUR ---
CPM REMOVED FROM LEFT LEG, REPORTS PAIN A 10 AT THIS TIME, REQUESTING PAIN MEDICATION, OXY 5MG WITH VISTERAL GIVEN, PT REFUSED BIPIN FARMER, WILL MONITOR
[2020-02-03 00:05] VITALS: BP 138/66
[2020-02-03 03:44] VITALS: BP 120/76
[2020-02-03 07:18] LABS: ANION GAP 12.1 mmol/L (8-16); CALCIUM 8.3 mg/dL (8.5-10.1); CARBON DIOXIDE 28.6 mmol/L (21.0-32.0); CREATININE - SERUM 1.4 mg/dL (0.6-1.3); MAGNESIUM - SERUM 1.9 mg/dL (1.8-2.4); POTASSIUM - SERUM 3.7 mmol/L (3.5-5.1)
--- NOTE | 2020-02-03 07:20 | NUR ---
AWAKE AND ALERT. CPM ON LEFT LEG AT THIS TIME. CONTINUES WITH C/O INTENSE PAIN TO BILATERAL KNEES. GIVEN 10MG OXY AND 50MG VISTIRIL PO FOR PAIN LEVEL 9. WILL MONITOR. LUNGS ARE CLEAR BILATERALLY, NO COUGH NOTED. REPORTS USING IS INSTRUCTED. SKIN IS INTACT WITHOUT REDNESS EXCEPT INCISIONS TO BOTH KNEES WHICH HAVE DRY INTACT DRESSINGS IN PLACE. SL TO RIGHT HAND IS PATENT WITHOUT REDNESS AT INSERTION SITE. DENIES NEEDS.
[2020-02-03 07:24] LABS: BASOPHILS 0.4 % (0-2); EOSINOPHILS 3.5 % (0-7); HEMATOCRIT 32.1 % (42.0-54.0); HEMOGLOBIN 10.4 g/dL (13.5-17.5); IMMATURE GRANULOCYTES 0.2 % (0-5); LYMPHOCYTES 22.2 % (15-50); MCH 29.6 pg (26.0-34.0); MCHC 32.4 g/dL (31.0-37.0); MCV 91.5 fL (80.0-100.0); MEAN PLATELET VOLUME 8.9 fL (7.4-10.4); MONOCYTES 13.9 % (2-11); NEUTROPHILS 59.8 % (40-80); PLATELET COUNT 239 10x3/uL (130-400); RBC 3.51 10x6/uL (4.20-6.10); RDW 12.4 % (11.5-14.5); WBC 9.2 10x3/uL (4.8-10.8)
[2020-02-03 07:30] VITALS: BP 115/75
--- NOTE | 2020-02-03 08:10 | NUR ---
SITTING UP IN BED EATING BREAKFAST. REPORTS NO RELIEF WITH PAIN MEDS. WILL CONTINUE TO MONITOR.
--- NOTE | 2020-02-03 09:30 | NUR ---
ATE MOST OF BREAKFAST. TOOK AM MEDS WITHOUT DIFFICULTY INCLUDING MS CONTIN. WILL MONITOR.
--- NOTE | 2020-02-03 09:34 | MORECARE ---
CASE MANAGEMENT DISCHARGE SUMMARY PATIENT: BETZAIDA TRAN UNIT: [id number] ADM DATE: 01/31/20 AGE: 64 : 55 SEX: M ROOM/BED: D.1208 AUTHOR: DANIEL,DOC PHYSICIAN: REFERRING PHYSICIAN: SHAUN COTTO DO DATE OF SERVICE: 02/03/20 Discharge Plan Patient Name: BETZAIDA TRAN Facility: [facility]:[place] : 1955 Planned Disposition: Outpatient PT\OT Anticipated Discharge Date: 02/03/20 Discharge Date: Expected LOS: 3 Initial Reviewer: TINA Initial Review Date: 01/31/2020 Generated: 02/03/20 10:33 am Comments DCP- Discharge Planning Updated by [email or web address]: Gina Snell on 02/02/20 9:[address] [facility] OP therapy appointment is 02/06/20 @2:00 pm. Arrive @1:45 pm for paperwork. DCP- Discharge Planning Updated by [email or web address]: Gina Snell on 02/01/20 5:[address] DC Plans: [facility], [id number]. CM met with the patient regarding DC plans/needs. Patient states that he lives independently with his ,Jemal Tran #[phone]. Patient states he has 4 stairs entering the home, no rails. PCP: Dr. Mehta. [facility]acy[facility]. DME: CPM X2, 2 wheeled walker, Polar ice pack, Shower/tub bench. CM discussed the need for HHS, OP Therapy, Rehab or SNF. Patient choice signed for [facility] OP Therapy. Patient denies being hospitalized within the past 30 days. Patient's , Jemal will drive him home upon DC. CM will contact [facility] ([phone]) for the appointment, for initial therapy evaluation. CM will assist and follow PRN. DCPIA - Discharge Planning Initial Assessment Updated by [email or web address]: Gina Snell on 02/01/20 6:51 pm * Is the patient Alert and Oriented? Yes * How many steps to enter\exit or inside your home? * PCP Dr. Mehta * [facility]acy [facility] * Preadmission Environment Home with Family * ADLs Independent * Equipment Rolling Walker * Other Equipment CPM X2, 2 wheeled walker, Polar ice pack, tub bench * List name and contact numbers for known caregivers / representatives who currently or will assist patient after discharge: Gwen Tran [phone] (c) Home [phone] * Verbal permission to speak to the caregivers and representatives has been obtained from the patient. Yes * Community resources currently utilized None * Please name any agencies selected above. [facility] OP Therapy [phone] * Additional services required to return to the preadmission environment? Yes * Can the patient safely return to the preadmission environment? Yes * Has this patient been hospitalized within the prior 30 days at any hospital? No Last DP export: 02/02/20 9:25 a Patient Name: BETZAIDA TRAN Page [phone] at 0934 All edits/amendments must be made on the electronic document DICTATION DATE: 02/03/20932 AGRONOMY SUPERVISOR: GLORIA 02/03/20932 RPT#: [id number] DC DATE: STATUS: ADM IN [facility] [address] [place] [address] END OF REPORT
--- NOTE | 2020-02-03 10:30 | NUR ---
UP WITH PT. AMBULATED IN HALLWAY WITH RW ABOUT 50 FEET. REPORTS PAIN AWFUL NO MATTER WHAT. ENCOURAGED TO WALK FAR POSSIBLE. WILL MONITOR.
--- NOTE | 2020-02-03 10:46 | NUR ---
Rehab Prescreening Consult recieved and the chart has been reviewed. He is a good ARU candidate, if he is willing to participate in the program. CM notes indicate he wants to DC home with OP Tx. Will discuss in the IDT meeting and plan to accept today if he and physician agree. Caity Zamora RN Clinical Liaison, Rehab
[2020-02-03 12:17] VITALS: BP 145/59
[2020-02-03 14:34] LABS: BILIRUBIN NEGATIVE (NEGATIVE); GLUCOSE NEGATIVE (NEGATIVE); KETONE NEGATIVE (NEGATIVE); NITRITE NEGATIVE (NEGATIVE); UROBILINOGEN NORMAL (NORMAL)
[2020-02-03 14:35] LABS: BACTERIA FEW /hpf (NEGATIVE); EPITHELIAL CELLS 0-5 /hpf (0-5)
[2020-02-03] MEDS ORDERED: oxyCODONE IR PO (15:13)
[2020-02-03] MEDS ORDERED: VISTARIL50 MG PO (15:13)
[2020-02-03] MEDS ORDERED: ELIQUIS2.5 MG PO (15:13)
[2020-02-03] MEDS ORDERED: VALIUM5 MG PO (15:14)
[2020-02-03] MEDS ORDERED: MS CONTIN30 MG PO (15:14)
--- NOTE | 2020-02-03 15:45 | NUR ---
REPORT CALLED TO RODRIGO OLIVA LPN ON REHAB. ALL QUESTIONS ANSWERED.
--- NOTE | 2020-02-03 16:03 | NUR ---
GIVEN 5MG VALIUM PO FOR ANXIETY. WILL MONITOR.
--- NOTE | 2020-02-03 17:09 | NUR ---
TRANSFERRED VIA BED TO REHAB ROOM 1112. WITH PATIENT. ALL BELONGINGS WITH PATIENT.
--- NOTE | 2020-02-06 18:26 | MORECARE ---
CASE MANAGEMENT DISCHARGE SUMMARY PATIENT: BETZAIDA TRAN UNIT: [id number] ADM DATE: 01/31/20 AGE: 64 : 55 SEX: M ROOM/BED: D.1208 AUTHOR: DANIEL,DOC PHYSICIAN: REFERRING PHYSICIAN: SHAUN COTTO DO DATE OF SERVICE: 02/06/20 Discharge Plan Patient Name: BETZAIDA TRAN Facility: [facility]:[place] : 1955 Planned Disposition: Outpatient PT\OT Anticipated Discharge Date: 02/03/20 Discharge Date: 02/03/2020 Expected LOS: 3 Initial Reviewer: TINA Initial Review Date: 01/31/2020 Generated: 02/06/20 7:25 pm DCP- Discharge Planning Updated by [email or web address]: Gina Snell on 02/02/20 9:[address] [facility] OP therapy appointment is 02/06/20 @2:00 pm. Arrive @1:45 pm for paperwork. DCP- Discharge Planning Updated by [email or web address]: Gina Snell on 02/01/20 5:[address] DC Plans: [facility], [id number]. CM met with the patient regarding DC plans/needs. Patient states that he lives independently with his ,Jemal Tran #[phone]. Patient states he has 4 stairs entering the home, no rails. PCP: Dr. Mehta. Pharmacy: [facility]. DME: CPM X2, 2 wheeled walker, Polar ice pack, Shower/tub bench. CM discussed the need for HHS, OP Therapy, Rehab or SNF. Patient choice signed for [facility] OP Therapy. Patient denies being hospitalized within the past 30 days. Patient's , Jemal will drive him home upon DC. CM will contact [facility] ([phone]) for the appointment, for initial therapy evaluation. CM will assist and follow PRN. DCPIA - Discharge Planning Initial Assessment Updated by [id number]: Gina Snell on 02/01/20 6:51 pm * Is the patient Alert and Oriented? Yes * How many steps to enter\exit or inside your home? * PCP Dr. Mehta * Pharmacy [facility] * Preadmission Environment Home with Family * ADLs Independent * Equipment Rolling Walker * Other Equipment CPM X2, 2 wheeled walker, Polar ice pack, tub bench * List name and contact numbers for known caregivers / representatives who currently or will assist patient after discharge: Gwen Tran [phone] (c) Home [phone] * Verbal permission to speak to the caregivers and representatives has been obtained from the patient. Yes * Community resources currently utilized None * Please name any agencies selected above. [facility] OP Therapy [phone] * Additional services required to return to the preadmission environment? Yes * Can the patient safely return to the preadmission environment? Yes * Has this patient been hospitalized within the prior 30 days at any hospital? No Last DP export: 02/03/20 8:34 a Patient Name: BETZAIDA TRAN Page [id number] at 1826 All edits/amendments must be made on the electronic document DICTATION DATE: 02/06/201824 MEAT INSPECTOR: GLORIA 02/06/201824 RPT#: [id number] DC DATE:02/03/20 STATUS: DIS IN [facility] [address] [place] [address] END OF REPORT
== END 2020-02-03 17:09 | DRG 462 ==
LOC: D.SDCHOLD 01-25 10:00 → D.M3 01-31 11:42 → D.SDCHOLD 01-31 13:07 → D.M3 01-31 20:25
PROVIDERS: Family Medicine; ADMIT Orthopaedic Surgery; ATTEND Orthopaedic Surgery
PROC: 0SPW0JZ Removal of Synthetic Substitute from Left Knee Joint, Tibial Surface, Open Approach (ICD-10-PCS; 2020-01-31)
PROC: 0SPV0JZ Removal of Synthetic Substitute from Right Knee Joint, Tibial Surface, Open Approach (ICD-10-PCS; 2020-01-31)
PROC: 0SRW0J9 Replacement of Left Knee Joint, Tibial Surface with Synthetic Substitute, Cemented, Open Approach (ICD-10-PCS; principal; 2020-01-31 14:00)
PROC: 0SRV0J9 Replacement of Right Knee Joint, Tibial Surface with Synthetic Substitute, Cemented, Open Approach (ICD-10-PCS; 2020-01-31 14:00)
DX: T84.033A Mechanical loosening of internal left knee prosthetic joint, initial encounter (principal); Y83.9 Surgical procedure, unspecified as the cause of abnormal reaction of the patient, or of later complication, without mention of misadventure at the time of the procedure; T84.032A Mechanical loosening of internal right knee prosthetic joint, initial encounter; D64.9 Anemia, unspecified; I25.10 Atherosclerotic heart disease of native coronary artery without angina pectoris; F41.8 Other specified anxiety disorders; M79.7 Fibromyalgia; Z85.828 Personal history of other malignant neoplasm of skin

== ENCOUNTER → 2020-01-25 21:09 | Outpatient (CLI) | payer MEDICARE, BC ==
[2017-06-23 19:07] VITALS: BMI 28.3
[~2020-01-25 21:09] MED LIST changes: +BAYER CHEWABLE81 MG PO; +FLUTICASONE PRO16 GM NASAL; +OMEPRAZOLE20 M1 PO; +OMEPRAZOLE40 MG PO
== END | disposition home or self-care (01) ==
LOC: D.LABREF 21:09
PROVIDERS: ATTEND Orthopaedic Surgery
DX: M17.0 Bilateral primary osteoarthritis of knee (principal)

== ENCOUNTER 2020-02-03 17:10 | Inpatient (IN) | payer MEDICARE, BC ==
[~2020-02-03] VITALS: Ht 188 cm; Wt 99.8 kg
--- NOTE | ~2020-02-03 | RHP ---
PATIENT: BETZAIDA MCCRACKEN MEDICAL RECORD: [id number] ACCOUNT: [id number] LOCATION:[facility]1112 : 55 ADMISSION DATE: 02/03/20 REHABILITATION HISTORY AND PHYSICAL EXAMINATION POST ADMISSION PHYSICIAN EXAMINATION ADMITTING DIAGNOSIS: Bilateral total knee replacement. HISTORY OF PRESENT ILLNESS: The patient is a 64-year-old gentleman who had a loosening of previous TKAs in the past approximately 2-1/2 years ago. He had bilateral total knee done. He started having pain in his tibias, left more than right. He went to see Dr. Alberto, had x-rays which showed no obvious signs of loosening. However, he advised him to get a bone scan. Bone scan showed both tibial components were loose, left more so than the right. Nonetheless, he opted to have both knees done that same time. On 02/02/2020, he went to the OR for bilateral revision of total knee arthroplasty. Postop, he had irretractable pain resulting difficulty with pain control. He had acute kidney injury. He has some sinus tachycardia from the pain, urinary retention, hematuria, and difficulty ambulating. Previously, he was independent with ADLs and mobility. Currently, he is mod-to-max assist for ADLs and mobility secondary to pain level of 9/10. He has got poor balance. He wants to be able to return home. COMORBIDITIES: Include acute kidney injury, anxiety, arthritis, coronary artery disease, decrease in mobility, decrease in physical functioning, depression, difficulty walking, irretractable pain, got a history of fibromyalgia, autoimmune disease, osteoarthritis, and reflux. PAST MEDICAL HISTORY: Significant for neuropathy, he has got a history of fibromyalgia, Raynaud's, headaches, viral encephalitis, got a history of arthritis, acid reflux, skin cancers, depression and anxiety. PAST SURGICAL HISTORY: Includes gallbladder surgery, tonsillectomy, adenoidectomy, septoplasty, left knee scope. He has had a right knee scope, hernia repair, vasectomy, multiple skin cancers removed. He has had coronary stents. Now, he has had multiple knee surgeries and lumbar laminectomy. ALLERGIES: HYDROCODONE, OXYCODONE, AND CODEINE. CURRENT MEDICATIONS: Include Flonase nasal spray daily, he is on TriCor 145 mg daily, multivitamin daily, he is on Cymbalta 60 mg daily, vitamin D 2000 units daily, atorvastatin 40 mg daily, Protonix 40 mg b.i.d., zolpidem 10 mg at bedtime, Kenalog he applies topically b.i.d., Neurontin 800 mg q.i.d., Eliquis 2.5 mg b.i.d., OxyIR he is on 10 mg every 4 hours p.r.n., Nitrostat p.r.n., morphine controlled release 30 mg every 12 hours, hydroxyzine 50 mg every 4 hours p.r.n., Valium 5 mg t.i.d. p.r.n. HABITS: No alcohol or tobacco use. FAMILY HISTORY: Noncontributory. SOCIAL HISTORY: The patient hopes to return back home and get back to his prior level of functioning. REVIEW OF SYSTEMS: GENERAL: Does complain of some weakness. HISTORY AND PHYSICAL [id number] BETZAIDA MCCRACKEN HEENT: Denies cold, cough, or congestion. CARDIOVASCULAR: Denies any chest pain. PHYSICAL EXAMINATION: VITAL SIGNS: Stable, afebrile. GENERAL: A somewhat obese gentleman in no acute distress upon exam. HEENT: Normocephalic and atraumatic. Mucosa moist. NECK: Supple. No lymphadenopathy. LUNGS: Clear in upper metzger. No wheezing, rhonchi or rales. HEART: Regular rate and rhythm. No murmurs, rubs or gallops. ABDOMEN: Soft, benign, and nondistended. Positive bowel sounds times 4. EXTREMITIES: No clubbing, cyanosis or edema. Postop areas looked good in both knees. NEUROLOGIC: He is mainly intact. LABORATORY DATA: White count was 9.2, H&H of 10 and 32 and platelet count was noted to be 239. His chemistry showed a sodium 143, potassium 3.7, BUN and creatinine of 12 and 1.4 and blood sugar is noted to be 99. ASSESSMENT: This is a 64-year-old gentleman admitted to the rehab with a working diagnosis of bilateral total knee replacement. The patient has potential to make improvement. We instituted the following multidisciplinary therapies include, not limited to physical, occupational, respiratory, speech, nutritional services, prosthetics and orthotics. Given his complex medical condition and risks for more complications, rehabilitation services cannot be provided at a low level of care such as correction facility. PLAN: 1. Admit to [facility] for intensive inpatient therapy to include the following A. Physical therapy to improve gait, all transfer skills and bed mobility to a modified independent level. B. Occupational therapy to improve activities of daily living. C. Case management to help with discharge planning and placement options. D. Nutrition to assist with nutritional needs. E. Rehabilitation nursing to assist in monitoring the patient's underlying medical conditions and to assist with any type of bowel or bladder management. 2. The patient's current medication and medical care will be continued. 3. The patient will be placed on standard fall precautions. 4. The patient's estimated length of stay is approximately 7-10 days. 5. We will discuss this patient during care team staff meeting this week. We will continue to watch how he does on the Eliquis and I will see again in the a.m. TRANSINT:[id number] Voice Confirmation ID: [id number] DOCUMENT ID: [id number] MAIKOL notes whether there has been none or any medical/functional change since admission: - No change since prescreen. MAIKOL attests patient continues to be appropriate for IRF: - Continues to be appropriate. HISTORY AND PHYSICAL [id number] BETZAIDA MCCRACKEN JOHN SCOTT MD CC: [id number] DICTATION DATE: 02/04/20909 AUTOMATIC BOW MAKER MACHINE TENDER: 02/04/20 1239 ADM IN [facility] [address] [place] [address]
[~2020-02-03 17:10] MED LIST changes: +MS CONTIN30 MG PO; +VALIUM5 MG PO; +VISTARIL50 MG PO; +oxyCODONE IR PO
[2020-02-03 17:59] VITALS: BP 127/69; BMI 28.3
--- NOTE | 2020-02-03 19:22 | NUR ---
PT SITTING UP IN BED AT BEDSIDE. CL IN REACH. DENIES NEEDS AT THIS TIME. BED IN LOW SIDE RAILS X3. BED ALARM ON. RESP EVEN AND UNLABORED. A/O X4 WITH SOME CONFUSION AT TIMES WITH PLACE. LUNGS CLEAR. BOWEL HYPOACTIVE. WILL CONTINUE TO MONITOR.
[2020-02-03 22:05] VITALS: BP 133/69
--- NOTE | 2020-02-04 02:15 | NUR ---
PAIN MED GIVEN EARLIER AND PT STILL CONPLAINING OF PAIN. VISTARIL GIVEN PER OCT. CL IN REACH. WCTM
--- NOTE | 2020-02-04 05:56 | NUR ---
PT PLACED ON CPM ON LEFT KNEE. TOLERATING WELL. DENIES FURTHER NEEDS. WILL CHECK ON PAIN MEDICATION. CL IN REACH. WCTM
[2020-02-04 07:00] VITALS: BP 118/72
--- NOTE | 2020-02-04 07:30 | NUR ---
UP IN BED AWAKE AT THIS TIME. DENIES ANY NEEDS. VSS. NO ACUTE DISTRESS NOTED. CPM MACHINE ON LT LEG, REMOVED AT THIS TIME SINCE HAS BEEN ON FOR 1.5 HOURS. WILL CONTINUE PLAN OF CARE.
--- NOTE | 2020-02-04 09:22 | NUR ---
LAST DOCCUMENTED BOWEL MOVEMENT WAS NOTED ON 01/29. DR GOVEA NOTIFIED OF THIS AND STATED HE WOULD PLACE ORDERS.
--- NOTE | 2020-02-04 09:49 | NUR ---
ORDER RECIEVED FOR MIRALAX DAILY PRN CONSTIPATION FOR PT SINCE NO BM SINCE 01/29.
--- NOTE | 2020-02-04 11:23 | NUR ---
NO ACUTE DISTRESS NOTED AT THIS TIME. PTS AT BEDSIDE. NO ACUTE DISTRESS NOTED. WILL CONTINUE PLAN OF CARE.
--- NOTE | 2020-02-04 12:05 | NUR ---
CPM TO RT LEG REMOVED AT THIS TIME AFTER HAD BEEN IN PLACE FOR 1.5 HOURS. PT UP IN BED DENIES ANY NEEDS. AT BEDSIDE. WILL CONTINUE PLAN OF CARE.
[2020-02-04 12:24] VITALS: Ht 188 cm; Wt 99.8 kg
--- NOTE | 2020-02-04 14:43 | NUR ---
PT AWAKE IN BED AT THIS TIME C/O INCISIONAL SITE PAIN. PRN PAIN MEDS ADMIN ORDERED. WILL CONTINUE TO OBSERVE.
--- NOTE | 2020-02-04 16:51 | NUR ---
PT NOTED TO HAVE SOME CONTUSION AT THIS TIME TO SITUATION. HE STATES HE IS HERE FOR BLOODWORK AND HIS UNABLE TO RECOLLECT HIS RECENT SURGERY. REORIENTATION PROVIDED. PTS AT BEDSIDE. ATTEMPTED TO REORIENTATE, UNSUCCESSFUL. WILL CONTINUE TO REORIENTATE PT. WILL CONTINUE PLAN OF CARE.
--- NOTE | 2020-02-04 17:39 | NUR ---
EPISODE OF INCREASED AGGITATION AT THIS TIME AND ATTEMPTING TO GET OUT OF BED. PTS AT BEDSIDE. ASSISTED PT WITH REPOSITIONING AND TV TURNED ON FOR DISTRACTION. PT THEN STATED HE IS MORE COMFORTABLE. PT NOW CALM. PRESSURE ALARM ON AND BED ALARM ON. WILL CONTINUE TO OBSERVE.
--- NOTE | 2020-02-04 18:07 | NUR ---
SPOKE WITH DR COTTO REGARDING PT STATUS. STATED TO DC PRN MORPHINE AND THAT CONFUSION COULD BE RELATED TO NARCOTICS. PT CURRENTLY CALM IN BED WATCHING TV. REORIENTATION PROVIDED. WILL CONTINUE TO OBSERVE.
--- NOTE | 2020-02-04 19:07 | NUR ---
PATIENT RESTING IN BED AND DENIES NEEDS AT THIS TIME. BED IN LOWEST POSITION AND CALL LIGHT WITHIN REACH. ENCOURAGED THE PATIENT TO CALL IF HE HAS NEEDS. WILL CONTINUE TO MONITOR.
[2020-02-04 20:01] VITALS: BP 130/53
--- NOTE | 2020-02-04 20:21 | NUR ---
PLACED PATIENT ON CPM TO RIGHT KNEE
--- NOTE | 2020-02-04 22:00 | NUR ---
PLACED PATIENT ON CPM TO LEFT KNEE
--- NOTE | 2020-02-05 01:08 | NUR ---
REPORT RECIEVED FROM MATILDE DANIEL. PT RESTING QUIETLY. CL IN REACH. NO DISTRESS NOTED. WCTM
--- NOTE | 2020-02-05 05:21 | NUR ---
PT PLACED ON CPM RIGHT KNEE AT THIS TIME. WCTM CL IN REACH
--- NOTE | 2020-02-05 07:28 | NUR ---
ALERT AND ORIENTED. NO DISTRESS NOTED. RESP EVEN AND UNLABORED. CL IN REACH.
[2020-02-05 10:09] VITALS: BP 138/83
--- NOTE | 2020-02-05 12:57 | NUR ---
NO CHANGE IN ASSESSMENT. RESTING WO DISTRESS. CL IN REACH.
--- NOTE | 2020-02-05 16:27 | NUR ---
NO CHANGE IN ASSESSMENT. WAS ON CPM EACH LEG X3 HRS EACH. FAMILY AT BS.
--- NOTE | 2020-02-05 19:20 | NUR ---
PT CONFUSED AT THIS TIME. PULLED CALL LIGHT OUT OF WALL. PT REORIENTATED. SWITCHED CPM FROM RIGHT KNEE TO LEFT KNEE. LEFT KNEE WILL BE IN CPM FOR 1 HR THEN COMPLETED FOR THE NIGHT. CL IN REACH. DENIES FURTHER NEEDS. BED IN LOW SIDE RAILS X2. BED ALARM ON. RESP EVEN AND UNLABORED. LUNGS CLEAR. WILL CONTINUE TO MONITOR.
[2020-02-05 20:00] VITALS: BP 125/61
--- NOTE | 2020-02-06 00:49 | NUR ---
I have reviewed this patient and I concur with the Shift Assessment completed by the Licensed Practical Nurse today this shift.
--- NOTE | 2020-02-06 02:22 | NUR ---
PT URING URINAL. DENIES NEEDS AT THIS TIME. CL IN REACH. PT STILL CONFUSED ON PLACE AND SITUATION. PT KEEPS ASKING FOR HIS TO COME IN HIS ROOM. INFORMED PT SHE WAS NOT HERE AND HE WAS IN THE HOSPITAL. WILL CONTINUE TO MONITOR.
--- NOTE | 2020-02-06 05:22 | NUR ---
PT PLACED ON CPM WITH LEFT KNEE. PT CONFUSED ON TIME AND SITUATION AND PLACE. REORIENTATED. WCTM CL IN REACH
--- NOTE | 2020-02-06 07:16 | NUR ---
RESTING WITH EYES CLOSED. NO DISTRESS. CL IN REACH. RESP EVEN AND UNLABORED.
[2020-02-06 07:54] LABS: ANION GAP 13.2 mmol/L (8-16); CALCIUM 8.8 mg/dL (8.5-10.1); CARBON DIOXIDE 27.9 mmol/L (21.0-32.0); CREATININE - SERUM 1.2 mg/dL (0.6-1.3); POTASSIUM - SERUM 4.1 mmol/L (3.5-5.1)
[2020-02-06 07:55] LABS: HEMATOCRIT 30.3 % (42.0-54.0); LYMPHOCYTES 19.8 % (15-50); MCH 29.6 pg (26.0-34.0); MCV 89.6 fL (80.0-100.0); MEAN PLATELET VOLUME 8.4 fL (7.4-10.4); RBC 3.38 10x6/uL (4.20-6.10); RDW 11.8 % (11.5-14.5); WBC 8.1 10x3/uL (4.8-10.8)
[2020-02-06 08:00] VITALS: BP 135/66
[2020-02-06 08:00] LABS: PLATELET COUNT 387 10x3/uL (130-400)
--- NOTE | 2020-02-06 12:01 | NUR ---
PATIENT ADMITTED TO REHAB FROM ACUTE FLOOR. DR. CRAMER IS APTIENT PCP. DME AT HOME IS A CPM, WALKER, ICE GARY SHOWER/TUB BENCH. PATIENT WILL NEED AN APPOINTMENT WITH DR. COTTO AT DISCHARGE. WILL CONTINUE TO FOLLOW WITH PATIENT.
--- NOTE | 2020-02-06 13:56 | NUR ---
PARTICIPATING IN THERAPY AT THIS TIME. NO CHANGE IN ASSESSMENT.
--- NOTE | 2020-02-06 18:03 | NUR ---
NO CHANGE IN ASSESSMENT. RESP EVEN AND UNLABORED. CL IN REACH.
--- NOTE | 2020-02-06 19:41 | NUR ---
PATIENT RECEIVED SITTING UP IN BED. ASSESSMENT & VITAL SIGNS DONE. BED LOW. CALL LIGHT WITHIN REACH. WILL CONTINUE TO MONITOR.
--- NOTE | 2020-02-06 21:45 | NUR ---
PATIENT URINAL EMPTIED OF 300 CC OF CLEAR YELLOW URINE. BED LOW. CALL LIGHT WITHIN REACH. WILL CONTINUE TO MONITOR.
[2020-02-06 21:53] VITALS: BP 141/75
--- NOTE | 2020-02-07 02:00 | NUR ---
PATIENT EYES CLOSED. RESPIRATIONS 18 & EVEN. BED LOW. CALL LIGHT WITHIN REACH. WILL CONTINUE TO MONITOR.
--- NOTE | 2020-02-07 02:34 | NUR ---
I have reviewed this patient and I concur with the Shift Assessment completed by the Licensed Practical Nurse today this shift.
[2020-02-07 08:00] VITALS: BP 96/60
--- NOTE | 2020-02-07 08:00 | NUR ---
RESTING IN BED WITH EYES CLOSED, RESP EVEN AN UNLABORED, NO S/S OF DISTRESS NOTED, C/L AND FLUIDS IN REACH.
--- NOTE | 2020-02-07 09:14 | NUR ---
AWAKE AND ALERT, ASSESSMENT COMPLETE, C/L AND FLUIDS IN REACH.
--- NOTE | 2020-02-07 11:56 | NUR ---
RESTING IN BED AT BEDSIDE, DENIES ANY NEEDS AT THIS TIME, C/L AND FLUIDS IN REACH.
--- NOTE | 2020-02-07 13:00 | NUR ---
I have reviewed this patient and I concur with the Shift Assessment completed by the Licensed Practical Nurse today this shift.
--- NOTE | 2020-02-07 13:30 | NUR ---
Nutrition Follow-up: Diet: Regular PO intake: ~71% average x last 8 meals Last BM: none recorded since admit. WT: 220# (02/04/20) Meds and labs reviewed Recommend continue current diet. RD following.
--- NOTE | 2020-02-07 15:56 | NUR ---
UP IN W/C IN THERAPY ROOM, DENIES ANY NEEDS AT THIS TIME.
--- NOTE | 2020-02-07 18:40 | NUR ---
BEDSIDE REPORT COMPLETE. PT SITTING UP IN BED VISITING WITH . ALERT AND ORIENTED X3. DENIES ANY NEEDS OR PAIN. PLACED CPM ON LEFT LEG PER PT REQUESTS. BILATERAL KNEE DRESSINGS INTACT. NO SIGNS OF ACUTE DISTRESS NOTED. CALL LIGHT WITHIN REACH. FALL PRECAUTIONS IN PLACE. CPOC
[2020-02-07 21:16] VITALS: BP 129/68
--- NOTE | 2020-02-08 00:41 | NUR ---
PT LYING IN BED ON RIGHT SIDE EYES CLOSED RESTING QUIETLY. RR EVEN AND UNLABORED. CALL LIGHT WITHIN REACH. FALL PRECAUTIONS IN PLACE. CPOC
--- NOTE | 2020-02-08 02:58 | NUR ---
PT LYING IN BED ON RIGHT SIDE RESTING QUIETLY. DENIES ANY NEEDS. C/O 02/23 BILATERAL KNEE PAIN. PAIN MEDICATION ADMININSTERED APPROX 30 MIN AGO. CALL LIGHT WITHIN REACH. FALL PRECAUTIONS IN PLACE. CPOC
--- NOTE | 2020-02-08 05:34 | NUR ---
PT LYING IN BED SUPINE AWAKE AND ALERT. DENIES ANY NEEDS. C/O MILD DISCOMFORT BILATERAL KNEES. CALL LIGHT AND WATER WITHIN REACH. FALL PRECAUTIONS IN PLACE. CPOC
[2020-02-08 08:00] VITALS: BP 125/65
--- NOTE | 2020-02-08 08:00 | NUR ---
SHIFT ASSMT COMPLETED.CL IN REACH.
[2020-02-08 08:50] LABS: ANION GAP 8.4 mmol/L (8-16); CALCIUM 8.5 mg/dL (8.5-10.1); CARBON DIOXIDE 28.2 mmol/L (21.0-32.0); CREATININE - SERUM 1.3 mg/dL (0.6-1.3); POTASSIUM - SERUM 3.6 mmol/L (3.5-5.1)
[2020-02-08 09:31] LABS: BASOPHILS 0.5 % (0-2); EOSINOPHILS 5.9 % (0-7); HEMATOCRIT 30.7 % (42.0-54.0); HEMOGLOBIN 9.7 g/dL (13.5-17.5); IMMATURE GRANULOCYTES 0.2 % (0-5); LYMPHOCYTES 18.5 % (15-50); MCH 28.5 pg (26.0-34.0); MCHC 31.6 g/dL (31.0-37.0); MCV 90.3 fL (80.0-100.0); MEAN PLATELET VOLUME 8.5 fL (7.4-10.4); MONOCYTES 12.9 % (2-11); PLATELET COUNT 495 10x3/uL (130-400); RDW 12.4 % (11.5-14.5); WBC 9.1 10x3/uL (4.8-10.8)
--- NOTE | 2020-02-08 12:00 | NUR ---
STAFF MEETING WITH SCHEDULED.
--- NOTE | 2020-02-08 13:10 | NUR ---
PLAN TO DC HOME.
[2020-02-08] MEDS ORDERED: LUNESTA2 M1 PO (13:17)
--- NOTE | 2020-02-08 14:25 | NUR ---
CARE TEAM MEETING: PATIENT SPOUSE ATTENDED THE METING. HER QUESTIONS AND CONCERNS WERE ADDRESSED. PATIENT IS DISCHARGING HOME TODAY WITH FAMILY. PATIENT HAS ALL DME NEEDED AT THIS TIME. [facility] WILL PROVIDE THERAPY AT HOME. NO COMPARE DATA REVIEWED PER REQUEST.DISCHARGE INSTRUCTIONS FAXED TO PCP, HOME HEALTH AND REVIEWED WITH PATIENT AND SPOUSE. BLACK SIGNED, IMM SERVED AND EXPLAINED ,ONE GIVEN TO PATIENT AND ONE FILED IN CHART.
--- NOTE | 2020-02-08 14:30 | NUR ---
DC'D HOME IN STABLE CONDITION WITH HOME INSTRUCTIONS.
== END 2020-02-08 14:30 | disposition home health service (06) | DRG 949 ==
LOC: D.REHAB 17:10
PROVIDERS: ADMIT Emergency Medicine; ATTEND Emergency Medicine
DX: T84.033D Mechanical loosening of internal left knee prosthetic joint, subsequent encounter (principal); N17.9 Acute kidney failure, unspecified; T84.84XD Pain due to internal orthopedic prosthetic devices, implants and grafts, subsequent encounter; Z96.653 Presence of artificial knee joint, bilateral; F41.9 Anxiety disorder, unspecified; M19.90 Unspecified osteoarthritis, unspecified site; I25.10 Atherosclerotic heart disease of native coronary artery without angina pectoris; F32.9 Major depressive disorder, single episode, unspecified; K21.9 Gastro-esophageal reflux disease without esophagitis; R00.0 Tachycardia, unspecified; R33.9 Retention of urine, unspecified; R31.9 Hematuria, unspecified; T84.032D Mechanical loosening of internal right knee prosthetic joint, subsequent encounter; D64.9 Anemia, unspecified; I73.00 Raynaud's syndrome without gangrene; R42 Dizziness and giddiness; I10 Essential (primary) hypertension; R51 Headache

== ENCOUNTER → 2020-05-10 08:00 | Outpatient (CLI) | payer MEDICARE, BC ==
[2020-02-04 12:24] VITALS: BMI 28.2
[~2020-05-10 08:00] MED LIST changes: +LUNESTA2 M1 PO
== END | disposition home or self-care (01) ==
LOC: D.HCCECHO 08:00
PROVIDERS: ATTEND Internal Medicine Cardiovascular Disease
DX: I25.10 Atherosclerotic heart disease of native coronary artery without angina pectoris (principal); I34.0 Nonrheumatic mitral (valve) insufficiency

== ENCOUNTER 2020-05-24 06:46 | Day surgery (SDC) | payer MEDICARE, BC ==
[~2020-05-24] VITALS: Ht 190.5 cm; Wt 104.9 kg
--- NOTE | ~2020-05-24 | HEMODYNAMI ---
PATIENT:BETZAIDA MCCRACKEN MEDICAL RECORD: [id number] : 55 LOCATION:[facility] ADMISSION DATE: 05/24/20 Generatedon:05/24/20208:35 Patient name: BETZAIDA MCCRACKEN Patient #: [id number] SSN: [id number] : 1955 Date of study: 05/24/2020 Page: Of Hemodynamic Procedure Report Patient Data Patient Demographics Procedure consent was obtained First Name: BETZAIDA Gender: Male Last Name: NAWAF : 1955 Middle Initial: NIKA Age: 64 year(s) Patient #: [id number] Race: SSN: [id number] Additional ID: [id number] Contact details [address]: [address] [place] [address] [place] State: [place] City: [place] Zip code: [address] Past Medical History Allergies Allergen Reaction Date Comments Reported Other allergy 05/24/2020 CODEINE Admission Admission Data Admission Date: 05/24/2020 Admission Time: 6:46 Arrival Date: 05/24/2020 Arrival Time: 0:00 Admit Source: Other Insurance Payor: Medicare Height (in.): 74.8 BSA: 2.32 (m2) Height (cm.): 190 BMI: 28.81 (kg/m2) Weight (lbs.): 229.28 Weight (kg.): 104 Lab Results Lab Result Date: 05/24/2020 Lab Result Time: 0:00 Biochemistry Name Units Result Min Max BUN mg/dl 21 --(----)-* 7 18 Creatinine mg/dl 1.2 --(---*)-- 0.6 1.3 eGFR ml/min 64.24149 *-(----)-- 90 120 NONAFRICAN CBC Name Units Result Min Max Hemoglobin g/dl 13.6 --(*---)-- 13.5 17.5 Procedure Procedure Types Cath Procedure Diagnostic Procedure LHC LHC w/Coronaries Sedation Charges Moderate Sedation up to 15 minutes Procedure Description Procedure Date Procedure Date: 05/24/2020 Procedure Start Time: 8:18 Procedure End Time: 8:31 Procedure Staff Name Function Arian Hill MD Performing Physician Gaby Sanchez RT Monitor Shaista Phipps RN Nurse Roslyn Lcok RT Scrub Indication CAD Procedure Data Cath Procedure Fluoroscopy Diagnostic fluoroscopy Total fluoroscopy Time: 2 time: 2 min min Diagnostic fluoroscopy Total fluoroscopy dose: 428 dose: 428 mGy mGy Contrast Material Contrast Material Type Amount (ml) Isovue 300 54 Entry Location Entry Primary Successful Side Size Upsize Upsize Entry Closure Succes sful Closure Location (Fr) 1 (Fr) 2 (Fr) Remarks Device Remarks Femoral Right 5 Fr Exoseal artery Estimated blood loss: 10 ml Diagnostic catheters Device Type Used For End Catheter Placement MULTIPACK JL 4.0 5Fr Procedure catheter MULTIPACK 3DRC 5Fr Procedure catheter MULTIPACK Pigtail 5 Fr Ventriculography catheter Procedure Complications No complications Procedure Medications Medication Administration Route Dosage Oxygen etCO2 Nasal cannula 2 l/min Lidocaine 2% added to field 20 Heparin Flush Bag added to field 2 bags (1000units/500ml NS) 0.9% NaCl I.V. 100 ml/hr Versed I.V. 2 mg Fentanyl I.V. 100 mcg Zofran I.V. 4 mg Versed I.V. 2 mg Fentanyl I.V. 100 mcg Versed I.V. 2 mg Versed I.V. 2 mg Hemodynamics Rest BSA: 2.32 (m2) HGB: 13.6 (g/dl) O2 Consumption: Estimated: 291.97 (ml/min) O2 Co nsumption indexed: Estimated:125.85 (ml/min/m) Heart Rate: 94 (bpm) Pressure Samples Time Site Value (mmHg) Purpose Heart Use Rate(bpm) 8:28 LV 123/-9,15 Snapshot 95 8:28 AO 110/61(81) Pullback 92 Gradients Valve Time Site Site 2 Mean SEP/DFP Peak To Heart Use 1 (mmHg) (sec/min) Peak Rate (mmHg) (bpm) Aortic 8:28 LV AO 21 9 92 110/61(81) Calculations Valve P-P Mean Valve Index Valve Source Name Gradient Area Flow (cm2) Aortic 21 21 Snapshots Pre Cath Intra NCS Post Cath Vital Signs Time Heart Resp SPO2 etCO2 NIBP (mmHg) Rhythm Pain Sedation Rate (ipm) (%) (mmHg) Status Level (bpm) 8:02:02 96 12 94 0 145/95(128) NSR 0 (11) 10(A) , No pain 8:06:18 94 18 94 35.3 132/85(101) NSR 0 (11) 10(A) , No pain 8:10:34 93 13 92 22.5 127/80(96) NSR 0 (11) 10(A) , No pain 8:14:48 92 14 92 28.5 130/80(100) NSR 0 (11) 10(A) , No pain 8:19:04 93 15 91 12 123/77(95) NSR 0 (11) 9(A) , No pain 8:23:18 93 13 92 33 124/80(101) NSR 0 (11) 9(A) , No pain 8:27:28 94 14 93 37.6 122/79(99) NSR 0 (11) 9(A) , No pain 8:31:40 92 15 92 40.6 118/75(96) NSR 0 (11) 10(A) , No pain Medications Time Medication Route Dose Verified Delivered Reason Notes Effe ctiveness by by 8:06:28 Oxygen etCO2 2 Arian Buffie used for Nasal l/min Sergio Phipps RN procedure cannula 8:06:36 Lidocaine 2% added 20ml Arian Arian for local to vial Sergio Hill MD anesthetic field 8:06:42 Heparin Flush added 2 Arian Arian used for Bag to bags Sergio Hill MD procedure (1000units/500ml field NS) 8:07:18 0.9% NaCl I.V. 100 Arian Buffie Per ml/hr Sergio Phipps RN physician 8:10:09 Zofran I.V. 4 mg Arian Buffie Per Sergio Phipps RN physician 8:16:32 Versed I.V. 2 mg Arian Buffie for Sergio Phipps RN sedation 8:16:39 Fentanyl I.V. 100 Arian Buffie for mcg Sergio Phipps RN sedation 8:19:15 Versed I.V. 2 mg Arian Buffie for Sergio Phipps RN sedation 8:19:19 Fentanyl I.V. 100 Arian Buffie for mcg Sergio Phipps RN sedation 8:22:51 Versed I.V. 2 mg Arian Bryanie for Sergio Phipps RN sedation 8:26:02 Versed I.V. 2 mg Arian Buffcindy for Sergio Phipps RN sedation Procedure Log Time Note 7:37:07 Informed consent obtained and on chart 7:38:08 Indication : CAD 7:38:15 Arrival Date: 05/24/2020 12:00:00 AM 7:38:24 Procedure Status Elective Heart Cath (OP). 7:38:27 Time tracking: Regular hours (M-F 7:00 - 5:00) 7:41:43 Stress Test: yes; abnormal INFERIOR 7:42:25 Patient allergic to Other allergyCODEINE 7:47:44 Roslyn Lock RT(R) (CV) sent for patient. Start room use. 7:47:53 Plan of Care:Hemodynamics will remain stable., Cardiac rhythm will remain stable., Comfort level will be maintained., Respiratory function will remain adequate., Patient/ family verbilizes understanding of procedure., Procedure tolerated without complication., Recovers from procedure without complications.. 8:00:46 Patient received from Pre/Post Procedure Room to CCL 1 Alert and oriented. Tansferred to table in Supine position. 8:00:47 Warm blankets applied, and gerry hugger turned on for patient comfort. 8:00:49 Correct patient and procedure confirmed by team. 8:00:50 ECG and BP/O2 sat monitors applied to patient. 8:00:51 Vital chart was started 8:00:54 Baseline sample Acquired. 8:00:57 Full Disclosure recording started 8:01:14 H&P Date Dictated: 05/02/2020 Within 30 days and on chart., H&P Addendum completed by physician on day of procedure. (MUST COMPLETE FOR ALL OUTPATIENTS). 8:01:46 Pre-procedure instructions explained to patient. 8:01:55 Family in waiting room. 8:01:56 Patient NPO since Midnight. 8:02:19 Was the patient premedicated? Yes 8:02:24 Is patient on blood thinner?Yes 8:02:30 ACC The patient was administered the following blood thiners within the last 24 hours: ACCPlavix 8:02:36 Patient diabetic? No. 8:02:41 Snore? Yes 8:02:42 Sleep apnea? No 8:02:47 Dentures? No ? 8:02:59 IV patent on arrival in right hand with 0.9% NaCl at [facility]. 8:03:43 Lab Result : BUN 21 mg/dl 8::43 Lab Result : eGFR NONAFRICAN 64.94022 ml/min 8:03:43 Lab Result : Creatinine 1.2 mg/dl 8::43 Lab Result : Hemoglobin 13.6 g/dl 8:03:50 Right groin area was prepped with chlora-prep and draped in sterile fashion 8:03:51 Alarms reviewed by R. N. 8:03:52 Sharps counted by scrub and verified by R.N. 8:04:49 Admit Source: Other 8:05:08 Patient Height : 74.8 inches 8:05:15 Patient Weight : 229.28 lbs 8:05:37 Insurance Payor : Medicare 8:06:15 Physician arrived 8:06:28 Oxygen 2 l/min etCO2 Nasal cannula was administered by Shaista Phipps RN; used for procedure; Verbal order read back and verified. 8:06:36 Lidocaine 2% 20ml vial added to field was administered by Arian Hill MD; for local anesthetic; Verbal order read back and verified. 8:06:42 Heparin Flush Bag (1000units/500ml NS) 2 bags added to field was administered by Arian Hill MD; used for procedure; Verbal order read back and verified. 8:07:18 0.9% NaCl 100 ml/hr I.V. was administered by Shaista Phipps RN; Per physician; Verbal order read back and verified. 8:10:09 Zofran 4 mg I.V. was administered by Shaista Phipps RN; Per physician; Verbal order read back and verified. 8:15:09 --------ALL STOP TIME OUT------ 8:15:10 Final Timeout: patient, procedure, and site verified with staff and physician. All members of the team are in agreement. 8:15:24 Right groin site verified by team. 8:15:30 Fire Safety Assessment: A--An alcohol-based skin anteseptic being used preoperatively., C--Open oxygen or nitrous oxide is being used., D--An ESU, laser, or fiber-optic light is being used. 8:15:34 Physical assessment completed. ASA score P 2 - A patient with mild systemic disease as per Arian Hill MD. 8:15:37 2) 60-89 Mildly reduced kidney function, and other findings (as for stage 1) point to kidney disease. 8:15:40 Maximum allowable contrast dose (3.7 X eGFR X 0.75)180 ml. 8:15:45 Sedation plan: IV Moderate Sedation Medication:Versed, Fentanyl 8:15:50 Use device set Femoral Dx 8:15:52 ACIST Syringe (76145) opened to sterile field. 8:15:53 Bag Decanter (2002S) opened to sterile field. 8:15:55 Medline Cath Pack ([id number]) opened to sterile field. 8:15:56 ACIST Hand Control (70221) opened to sterile field. 8:15:56 ACIST Manifold (44206) opened to sterile field. 8:15:58 DIAGNOSTIC Multipack 5Fr catheter set (HW5517) opened to sterile field. 8:15:58 Tegaderm 4 x 4 (1626W) opened to sterile field. 8:16:00 SHEATH 5FR Douglas (JHR531) opened to sterile field. 8:16:00 EMERALD Guide Wire (608-812) opened to sterile field. 8:16:32 Versed 2 mg I.V. was administered by Shaista Phipps RN; for sedation; Verbal order read back and verified. 8:16:39 Fentanyl 100 mcg I.V. was administered by Shaista Phipps RN; for sedation; Verbal order read back and verified. 8:18:13 Procedure started. 8:18:56 Local anesthetic to right femoral artery with Lidocaine 2% by Arian Hill MD.INITIAL ACCESS ONLY 8:19:15 Versed 2 mg I.V. was administered by Shaista Phipps RN; for sedation; Verbal order read back and verified. 8:19:19 Fentanyl 100 mcg I.V. was administered by Shaista Phipps RN; for sedation; Verbal order read back and verified. 8:19:23 A 5 Fr sheath was inserted into the Right Femoral artery 8:21:41 j wire advanced. 8:22:44 A MULTIPACK JL 4.0 5Fr catheter was advanced over the wire and used for Procedure. 8:22:47 LCA angiography performed. 8::51 Versed 2 mg I.V. was administered by Shaista Phipps RN; for sedation; Verbal order read back and verified. 8:24:11 Catheter removed. 8:24:23 A MULTIPACK 3DRC 5Fr catheter was advanced over the wire and used for Procedure. 8:24:26 RCA angiography performed. 8:26:02 Versed 2 mg I.V. was administered by Shaista Phipps RN; for sedation; Verbal order read back and verified. 8:26:07 Catheter removed. 8:26:31 A MULTIPACK Pigtail 5 Fr catheter was advanced over the wire and used for Ventriculography. 8:26:34 LV gram done using FARRELL 8:26:40 Zero performed for pressure channel P1 8:28:37 EF : 55 % 8:28:42 Catheter removed. 8:28:48 EXOSEAL 5Fr (EX500) opened to sterile field. 8:29:02 Sheath removed intact; hemostasis achieved with Exoseal to the Right Femoral artery. 8:29:19 Procedure ended.(Physican Out) 8:29:33 Fluoroscopy time 02.00 minutes. 8:29:39 Fluoroscopy dose: 428 mGy 8:29:39 Flurop Dose total: 428 8:29:45 Dose Area Product 36633 mGy/cm. 8:29:51 Contrast amount:Isovue 300 54ml. 8:29:53 Maximum allowable dose exceeded? No. 8:29:55 Sharps counted by scrub and verified by R.N. 8:29:56 Insertion/operative site no bleeding no hematoma. 8:30:00 Post-op/insertion site Right Femoral artery dressed using a 4 x 4 and Tegaderm. 8:30:02 Post Procedure Pulses reassessed and unchanged 8:30:06 Post-procedure physical assessment completed. ASA score P 2 - A patient with mild systemic disease as per Arian Hill MD. 8:30:11 Post procedure rhythm: unchanged. 8::19 Estimated blood loss: 10 ml 8:30:21 Post procedure instruction explained to patient.Patient verbalizes understanding. 8:30:30 Patient needs reinforcement of post procedure teaching. 8:30:46 Procedure type changed to Cath procedure, Diagnostic procedure, LHC, LHC w/Coronaries, Sedation Charges, Moderate Sedation up to 15 minutes 8:30:47 Procedure and supply charges have been captured, reviewed, submitted and are correct. 8:31:09 Procedure Complication : No complications 8:31:13 Vital chart was stopped 8:31:14 [facility] Findings: mild to moderate CAD (<70%) 8:31:22 Operative report dictated upon procedure completion. 8:31:23 See physician's report for complete and final results. 8:31:24 Report given to Pre/Post Procedure Room. 8:31:27 Patient transfered to Pre/Post Procedure Room with Stretcher. 8:31:29 Procedure ended. 8:31:29 Full Disclosure recording stopped 8:31:36 End room use (Document Last) 8:32:04 End room use (Document Last) 8:32:43 End room use (Document Last) Device Usage Item Name Manufacture Quantity Catalog Hospital Part Current Minimal L ot# / Number Charge Number Stock Stock Serial# Code ACIST Acist 1 95357 246918 [id number] 138452 20 Syringe Medical (92899) Systems Inc Bag Microtek 1 2001S 189109 01938 067738 5 Decanter Medical Inc. () Medline Medline 1 [id number] 168265 75730 324142 5 Cath Pack ([id number]) ACIST Hand Acist 1 90908 274697 391250 755379 5 Control Medical (73362) Systems Inc ACIST Acist 1 42339 382921 610424 647181 5 Manifold Medical (81193) Systems Inc DIAGNOSTIC Cardinal 1 [id number] 344162 50937 657686 30 Multipack Health 5Fr catheter set (KA8198) Tegaderm 4 3M 1 1626W 736141 978098 080962 5 x 4 (1626W) SHEATH 5FR Terumo 1 LRG593 237376 425777 480490 5 Douglas (AYP846) EMERALD Cardinal 1 502-455 116920 082666 734631 5 Guide Wire Health (502-455) MULTIPACK Cardinal 1 932806 5 JL 4.0 5Fr Health catheter MULTIPACK Cardinal 1 829067 5 3DRC 5Fr Health catheter MULTIPACK Cardinal 1 740053 5 Pigtail 5 Health Fr catheter EXOSEAL 5Fr Cardinal 1 EX500 050305 353850 780272 10 (EX500) Health Signature Audit [place] Stage Time Signature Unsigned Intra-Procedure 05/24/2020 Gaby Daniel 8:32:04 AM RT(R) Intra-Procedure 05/24/2020 Arian Hill MD 8:32:43 AM Intra-Procedure 05/24/2020 Arian Hill MD 8:35:41 AM [place] [address] [place] [address]
[2020-05-24] MEDS ORDERED: PLAVIX75 MG PO (07:08)
[2020-05-24] MEDS ORDERED: OMEPRAZOLE20 M1 PO (07:08)
[2020-05-24] MEDS ORDERED: ULTRAM50 MG PO (07:09)
[2020-05-24] MEDS ORDERED: DEXILANT60 MG PO (07:11)
[2020-05-24] MEDS ORDERED: BAYER CHEWABLE81 MG PO (07:17)
[2020-05-24 07:30] VITALS: BP 131/94; Ht 190.5 cm; Wt 104.9 kg
[2020-05-24 07:36] LABS: BASOPHILS 0.1 % (0-2); EOSINOPHILS 0 % (0-7); HEMATOCRIT 41.4 % (42.0-54.0); HEMOGLOBIN 13.6 g/dL (13.5-17.5); IMMATURE GRANULOCYTES 0.3 % (0-5); LYMPHOCYTES 12.2 % (15-50); MCH 28.6 pg (26.0-34.0); MCHC 32.9 g/dL (31.0-37.0); MEAN PLATELET VOLUME 8.2 fL (7.4-10.4); MONOCYTES 7.2 % (2-11); NEUTROPHILS 80.2 % (40-80); RBC 4.76 10x6/uL (4.20-6.10); RDW 13.4 % (11.5-14.5); WBC 10.9 10x3/uL (4.8-10.8)
[2020-05-24 07:44] LABS: PLATELET COUNT 279 10x3/uL (130-400)
[2020-05-24 07:55] LABS: ANION GAP 14.7 mmol/L (8-16); CALCIUM 8.9 mg/dL (8.5-10.1); CARBON DIOXIDE 23.3 mmol/L (21.0-32.0); CHOL - HDL RATIO 4.7 ratio (2.3-4.9); CREATININE - SERUM 1.2 mg/dL (0.6-1.3); LDL-HDL RATIO 3.3 ratio (1.5-3.5)
--- NOTE | 2020-05-24 08:47 | NUR ---
PT ARRIVED BY STRETCHER. PLACED ON MONITORS. ASSESSMENT COMPLETED. VSS AT THIS TIME. CALL LIGHT WITHIN REACH.
--- NOTE | 2020-05-24 09:00 | NUR ---
PT RESTING COMFORTABLY. VSS. RIGHT GROIN DRESSING C/D/I. NO S/S OF HEMATOMA NOTED. RIGHT PEDAL PULSE PALPABLE. CALL LIGHT WITHIN REACH. NO NEEDS AT THIS TIME. DENIES NAUSEA/PAIN.
--- NOTE | 2020-05-24 09:27 | NUR ---
PT RESTING COMFORTABLY. VSS. RIGHT GROIN DRESSING C/D/I. NO S/S OF HEMATOMA NOTED. CALL LIGHT WITHIN REACH. VSS AT THIS TIME.
--- NOTE | 2020-05-24 10:00 | NUR ---
RIGHT GROIN DRESSING C/D/I. NO S/S OF HEMATOMA NOTED. CALL LIGHT WITHIN REACH. PT'S HEAD OF BED INC TO 30 DEGREES. TOLERATED WELL. VSS. SET UP WITH SANDWICH TRAY AND DRINK. DENIES NAUSEA/PAIN.
--- NOTE | 2020-05-24 10:30 | NUR ---
RIGHT GROIN DRESSING C/D/I. NO S/S OF HEMATOMA NOTED. VSS. CALL LIGHT WITHIN REACH. NO NEEDS AT THIS TIME.
--- NOTE | 2020-05-24 10:45 | NUR ---
RIGHT GROIN DRESSING C/D/I. NO S/S OF HEMATOMA NOTED. PIV D/C'D WITH CATH TIP INTACT. TOLERATED WELL. PT INSTRUCTED TO GET UP AND DRESSED AT THIS TIME. CALL LIGHT WITHIN REACH.
--- NOTE | 2020-05-24 10:59 | NUR ---
PT AMBULATED TO RESTROOM. VOIDED WITHOUT DIFFICULTY. STEADY GAIT NOTED. RIGHT GROIN DRESSING C/D/I. NO S/S OF HEMATOMA NOTED. DISCUSSED DISCHARGE INSTRUCTIONS WITH PT. HE VOICED UNDERSTANDING.
--- NOTE | 2020-05-24 11:05 | NUR ---
PT TAKEN OUT TO VEHICLE BY WHEELCHAIR. NO S/S OF DISTRESS NOTED. ALL BELONGINGS AND PAPERWORK IN HAND.
== END 2020-05-24 11:05 | disposition home or self-care (01) ==
LOC: D.CATH 06:46
PROVIDERS: ATTEND Internal Medicine Cardiovascular Disease
DX: I25.119 Atherosclerotic heart disease of native coronary artery with unspecified angina pectoris (principal); R94.39 Abnormal result of other cardiovascular function study; E78.5 Hyperlipidemia, unspecified; I10 Essential (primary) hypertension; I35.8 Other nonrheumatic aortic valve disorders; R07.9 Chest pain, unspecified; R06.02 Shortness of breath; I05.0 Rheumatic mitral stenosis

== ENCOUNTER 2020-10-19 14:31 | Emergency (ER) | payer MEDICARE, BC ==
[~2020-10-19] VITALS: Ht 190.5 cm; Wt 100.0 kg
[2020-10-19 14:41] VITALS: Ht 190.5 cm; Wt 100.0 kg
[2020-10-19 15:40] LABS: BASOPHILS 0 % (0-2); EOSINOPHILS 0.2 % (0-7); HEMOGLOBIN 14.9 g/dL (13.5-17.5); IMMATURE GRANULOCYTES 0.2 % (0-5); LYMPHOCYTE ABS# 0.37 10x3/uL (1.32-3.57); LYMPHOCYTES 4.2 % (15-50); MCH 29.4 pg (26.0-34.0); MCHC 33.1 g/dL (31.0-37.0); MCV 88.9 fL (80.0-100.0); MEAN PLATELET VOLUME 8.3 fL (7.4-10.4); MONOCYTES 8.1 % (2-11); NEUTROPHIL ABS# 7.62 10x3/uL (1.78-5.38); NEUTROPHILS 87.3 % (40-80); PLATELET COUNT 291 10x3/uL (130-400); RBC 5.06 10x6/uL (4.20-6.10); RDW 12.9 % (11.5-14.5); WBC 8.7 10x3/uL (4.8-10.8)
[2020-10-19 15:44] LABS: CALC OSMOLALITY 276 mosm/kg (275-300); CALCIUM 8.4 mg/dL (8.5-10.1); CARBON DIOXIDE 24.1 mmol/L (21.0-32.0); CHLORIDE - SERUM 100 mmol/L (98-107); CREATININE - SERUM 1.4 mg/dL (0.6-1.3); GLUCOSE 105 mg/dL (74-106); POTASSIUM - SERUM 3.7 mmol/L (3.5-5.1); SODIUM 137 mmol/L (136-145); UREA NITROGEN 22 mg/dL (7-18); eGFR NON AFRICAN AMERICAN 54 mL/min (90-120)
[2020-10-19 15:52] LABS: ALBUMIN 3.5 g/dL (3.4-5.0); ALKALINE PHOSPHATASE 95 U/L (30-120); ALT (SGPT) 55 U/L (10-68); AMYLASE - SERUM 64 U/L (25-115); BILIRUBIN - TOTAL 0.45 mg/dL (0.2-1.3); LIPASE 116 U/L (73-393)
[2020-10-19 15:54] LABS: TROPONIN-I < 0.017 ng/mL (0.000-0.060)
[2020-10-19] MEDS ORDERED: ZOFRAN ODT4 MG/UDTAB PO (17:00)
[2020-10-19 17:22] LABS: BILIRUBIN NEGATIVE (NEGATIVE); KETONE NEGATIVE (NEGATIVE); NITRITE NEGATIVE (NEGATIVE); UROBILINOGEN NORMAL mg/dL (< 2)
[2020-10-19 17:30] VITALS: BP 137/84
== END 2020-10-19 18:08 | disposition home or self-care (01) ==
LOC: D.ER 14:31
PROVIDERS: Family Medicine
DX: K52.9 Noninfective gastroenteritis and colitis, unspecified (principal); E86.0 Dehydration; K21.9 Gastro-esophageal reflux disease without esophagitis; R11.10 Vomiting, unspecified

== ENCOUNTER → 2020-12-14 10:53 | Outpatient (CLI) | payer MEDICARE, BC ==
[2020-10-19 14:41] VITALS: BMI 27.5
[~2020-12-14 10:53] MED LIST changes: +ZOFRAN ODT4 MG/UDTAB PO
== END | disposition home or self-care (01) ==
LOC: D.MRI 10:00
PROVIDERS: ATTEND Orthopaedic Surgery
DX: M25.512 Pain in left shoulder (principal)

== ENCOUNTER 2021-01-18 05:15 | Day surgery (SDC) | payer MEDICARE, BC ==
[2021-01-16 09:16] LABS: EOSINOPHILS 5.6 % (0-7); HEMATOCRIT 42.6 % (42.0-54.0); HEMOGLOBIN 14.3 g/dL (13.5-17.5); LYMPHOCYTES 38.2 % (15-50); MCH 29.8 pg (26.0-34.0); MCHC 33.5 g/dL (31.0-37.0); MEAN PLATELET VOLUME 6.2 fL (7.4-10.4); NEUTROPHILS 44.2 % (40-80); PLATELET COUNT 349 10x3/uL (130-400); RBC 4.79 10x6/uL (4.20-6.10); RDW 13.3 % (11.5-14.5); WBC 5.6 10x3/uL (4.8-10.8)
[2021-01-16 09:25] LABS: APTT 26.4 SECONDS (22.8-39.4); INR 1.09 (0.85-1.17); PROTIME 13.1 SECONDS (11.6-15.0)
[2021-01-16 09:27] LABS: ANION GAP 12.1 mmol/L (8-16); CALCIUM 9.1 mg/dL (8.5-10.1); CARBON DIOXIDE 25.1 mmol/L (21.0-32.0); CREATININE - SERUM 1.2 mg/dL (0.6-1.3); POTASSIUM - SERUM 4.2 mmol/L (3.5-5.1)
[~2021-01-18] VITALS: Ht 188 cm; Wt 98.9 kg
[2021-01-18] MEDS ORDERED: LIPITOR80 MG PO (06:36)
[2021-01-18] MEDS ORDERED: OMEPRAZOLE40 MG PO (06:36)
[2021-01-18] MEDS ORDERED: OMEPRAZOLE20 M1 PO (06:37)
[2021-01-18 06:42] VITALS: BP 140/75; Ht 188 cm; Wt 98.9 kg
--- NOTE | 2021-01-18 11:16 | NUR ---
DISCHARGE INSTRUCTIONS GIVEN TO PT AND .
--- NOTE | 2021-01-18 15:41 | OP ---
PATIENT NAME: BETZAIDA TRAN MEDICAL RECORD: [id number] :55 LOCATION:[facility] ADMISSION DATE: SURGEON: ELIAN COTTO DO DATE OF OPERATION: 01/18/2021 PROCEDURE PERFORMED: Left shoulder arthroscopy with rotator cuff repair, biceps tenodesis, subacromial decompression, distal clavicle excision. PREOPERATIVE DIAGNOSES: Left shoulder partial thickness rotator cuff tear, superior labrum anterior and posterior tear, acromioclavicular joint arthritis, and subacromial impingement. POSTOPERATIVE DIAGNOSES: Left shoulder partial thickness rotator cuff tear, superior labrum anterior and posterior tear, acromioclavicular joint arthritis, and subacromial impingement. INDICATIONS: Mr. Tran is a 65-year-old male who has had left shoulder pain for quite some time. He has tried injections and nonoperative treatments to no avail. He is tired of dealing with the pain and wants something done surgically. He had an MRI showing the above findings. I warned him of the risks of this including infection, bleeding, damage to vessels, need for further surgery, continued pain, loss of motion of the left shoulder, and failure of implants and arthrofibrosis or frozen shoulder syndrome, and he signed the consent. SURGEON: Elian Cotto DO DESCRIPTION OF PROCEDURE: The patient was taken to the operative suite. After given a block by anesthesia in preoperative area, laid in the right lateral decubitus position with the left shoulder up, sedated and LMA was placed. He was given 900 mg of clindamycin. The left shoulder was prepped and draped in sterile fashion. A timeout was performed. Everyone was in agreement with correct side, site, patient and procedure. I then began by inflating the shoulder joint itself with 60 cc of normal saline and then established a posterior portal with an 11-blade scalpel. Trocar was then entered into the joint. I then established an anterior portal with 18-gauge spinal needle and 11-blade scalpel. Trocar was then brought in. I saw that his SLAP tear was present, type 2. I then inspected the articular side of his rotator cuff tendons. They were all in good shape, the subscapularis, infraspinatus, and supraspinatus. There were no loose bodies in the inferior gutter either. Next, cartilage was in good shape. I then brought in a burner through the anterior portal and a biceps tenotomy. I then went to the subacromial space, established a lateral portal with an 18-gauge spinal needle and 11-blade scalpel. Trocar was then brought in. I then noticed immediately the bursal-sided tear that he had on the supraspinatus tendon. That was about the half the size of a dime and it was pretty much full thickness. It was not seen on the articular side or the bursal side. I then did a subacromial decompression and acromioplasty and through the anterior portal, a distal clavicle excision, opened up the AC joint, so the acromion was no longer touching the clavicle. I then marked the rotator cuff tendon tear with an 18-gauge spinal needle and reprepped the shoulder and removed all the instruments. We reprepped the shoulder with ChloraPrep and then once it dried, opened up the lateral incision with a 15-blade scalpel, made blunt dissection down with [place]'s to the tear. Identified the tear and cleaned it off and then put in a medial row anchor, bit through 4 suture tapes through the tendon and brought over to the lateral row anchor. I then put on a OPERATIVE REPORT [id number] BETZAIDA TRAN implant and stapled it into place. I went to the anterior humerus, made a small incision, made careful dissection down to the long head of the biceps tendon and dissected out and put a unicortical hole in the humerus and put a 2.9 JuggerLoc in the humerus with a loop stitch and looped the tendon through the loop and cinched it down. I then cut the excess suture with the loop and sutured back through the tendon with free needle and tied it down and cut the excess tendon and suture. I then irrigated and Ralf Savage, certified surgical airline pilot/first officer closed these 2 open sites with 2-0 Vicryl in inverted interrupted fashion., 4-0 Monocryl ran on the skin, 4-0 Monocryl in inverted interrupted fashion on the portal sites. He was then dressed with Dermabond, Telfa and Tegaderm and awakened and taken to recovery and put in a sling in stable condition. BLOOD LOSS: Minimal. COMPLICATION: None. TRANSINT:[id number] Voice Confirmation ID: [id number] DOCUMENT ID: [id number] ELIAN COTTO DO at 1541 CC: [id number] DICTATION DATE: 01/18/21 1010 [place] SCULLION: 01/18/21 1329 [facility] [address] [id number]
--- NOTE | 2021-01-18 17:37 | NUR ---
EFFECTIVE PERIPHERAL NERVE BLOCK. DRESSED AND WAIST SWATH PLACED. DISHARGE INSTRUCTIONS GIVEN AND PT AND VERBALIZED AN UNDERSTANDING. IV D/C'D WITH CANNULA INTACT, PRESSURE HELD AND DRSG PLACED. POSTERIOR SHOULD DRSG REINFORCED WITH GAUZE AND TEGADERM
== END 2021-01-18 12:10 | disposition home or self-care (01) ==
LOC: D.OPS 05:15
PROVIDERS: Anesthesiology; ATTEND Orthopaedic Surgery
DX: M75.102 Unspecified rotator cuff tear or rupture of left shoulder, not specified as traumatic (principal); M13.812 Other specified arthritis, left shoulder; M75.42 Impingement syndrome of left shoulder; S43.432A Superior glenoid labrum lesion of left shoulder, initial encounter; X58.XXXA Exposure to other specified factors, initial encounter; M25.512 Pain in left shoulder